=== PATIENT | female | born 1985 | race Two or more races ===

== ENCOUNTER 2020-01-03 09:05 | Outpatient (REF) | payer SELFPAY | END 2020-01-03 09:06 | disposition home or self-care (01) | LOC: HO.SCI 09:05 | DX: Z13.89 Encounter for screening for other disorder (principal) ==

== ENCOUNTER 2020-01-27 11:43 | Outpatient (REF) | payer MEDICAID, SELFPAY ==
--- NOTE | 2020-01-27 | US_ITS ---
EXAMINATION: ULTRASOUND OF THE PELVIS CLINICAL INFORMATION: Abnormal uterine bleeding.. COMPARISON: None. TECHNIQUE: Transabdominal and transvaginal pelvic ultrasound. A transvaginal study was performed in addition to the transabdominal study which did not yield an adequate examination of the uterus and ovaries due to superimposed distended gas-filled loops of bowel. FINDINGS: The uterus is normal in size and appearance, measuring 9.4 x 4.8 x 5.1 cm longitudinally, anteroposteriorly and transversely. The endometrial stripe thickness is normal, measuring 0.9 cm in thickness. No focal myometrial mass is seen. Nabothian cysts are noted at the cervix. The ovaries bilaterally are visualized and appear normal, with the right ovary measuring 2.5 x 1.8 x 1.9 cm and the left ovary measuring 2.5 x 2.3 x 1.6 cm. Small follicles noted. No adnexal mass or free fluid collection seen. US/US pelvic complete IMPRESSION: Somewhat prominent endometrium is likely associated with the phase of cycle. Otherwise unremarkable pelvic ultrasound..
--- NOTE | 2020-01-27 | US_ITS ---
EXAMINATION: ULTRASOUND OF THE PELVIS CLINICAL INFORMATION: Abnormal uterine bleeding.. COMPARISON: None. TECHNIQUE: Transabdominal and transvaginal pelvic ultrasound. A transvaginal study was performed in addition to the transabdominal study which did not yield an adequate examination of the uterus and ovaries due to superimposed distended gas-filled loops of bowel. FINDINGS: The uterus is normal in size and appearance, measuring 9.4 x 4.8 x 5.1 cm longitudinally, anteroposteriorly and transversely. The endometrial stripe thickness is normal, measuring 0.9 cm in thickness. No focal myometrial mass is seen. Nabothian cysts are noted at the cervix. The ovaries bilaterally are visualized and appear normal, with the right ovary measuring 2.5 x 1.8 x 1.9 cm and the left ovary measuring 2.5 x 2.3 x 1.6 cm. Small follicles noted. No adnexal mass or free fluid collection seen. US/US transvaginal IMPRESSION: Somewhat prominent endometrium is likely associated with the phase of cycle. Otherwise unremarkable pelvic ultrasound..
== END 2020-01-27 11:44 | disposition home or self-care (01) ==
LOC: HO.US 11:43
PROVIDERS: Visit Provider Family Medicine
DX: N93.9 Abnormal uterine and vaginal bleeding, unspecified (principal)
CPT/HCPCS: 76830; 76856

== ENCOUNTER 2022-12-27 | Outpatient (REF) | payer SELFPAY ==
[2023-01-01 20:37] LABS: HPV mRNA E6/E7 rflx Not Detected (Not Detected)
== END 2022-12-27 00:01 | disposition home or self-care (01) ==
LOC: HO.HHCLNP
PROVIDERS: Visit Provider Family Medicine
DX: Z12.4 Encounter for screening for malignant neoplasm of cervix (principal); Z11.51 Encounter for screening for human papillomavirus (HPV)
CPT/HCPCS: 87624; 88142

== ENCOUNTER 2023-02-07 09:50 | Outpatient (REF) | payer OTHER, SELFPAY ==
[2023-02-07 11:41] LABS: Estimated Average Glucose 120 mg/dL; Hemoglobin A1c % 5.8 % (<6.0)
[2023-02-07 12:04] LABS: Alanine Aminotransferase 33 U/L (0-31); Albumin Level 4.1 g/dL (3.5-5.0); Alkaline Phosphatase 131 U/L (39-117); Anion Gap 12 (12-20); Aspartate Amino Transferase 21 U/L (5-31); Bilirubin Total 0.4 mg/dL (0.0-1.0); Blood Urea Nitrogen 13 mg/dL (9-16); Calcium 9.1 mg/dL (8.4-10.2); Carbon Dioxide 26 mmol/L (22-29); Chloride 108 mmol/L (96-108); Cholesterol 161 mg/dL (<200); Estimated Glomerular Filt Rate > 60; Glucose Random 90 mg/dL (60-115); HDL Cholesterol 41 mg/dL (>40); LDL Cholesterol Calculated 93 mg/dL (<100); Potassium 4.1 mmol/L (3.3-5.1); Sodium 142 mmol/L (135-145); Total Protein 7.7 g/dL (6.5-8.0); Triglycerides 137 mg/dL (<150)
[2023-02-07 12:19] LABS: HBS Num1 16.89 mIU/mL (0-7.99); ~HepC Num1 0.17 S/CO (0.00-0.79); ~Hepatitis B Surface Antibody REACTIVE (Nonreactive); ~Hepatitis C Antibody Nonreactive (Nonreactive)
[2023-02-07 12:27] LABS: TSH reflex Free T4 4.42 uIU/mL (0.32-4.0)
[2023-02-07 13:11] LABS: Free T4 (Free Thyroxine) 1.05 ng/dL (0.71-1.85)
[2023-02-07 14:44] LABS: CT PCR NOT DETECTED (Not Detect.); NG PCR NOT DETECTED (Not Detect.)
[2023-02-11 10:15] LABS: RPR Rapid Plasma Reagin NON-REACTIVE (NON-REACTIVE)
[2023-02-11 17:03] LABS: HIV RNA PCR Qn Copies Not Detected Copies/mL; HIV RNA PCR Qn Log Copies Not Detected Log cps/mL
== END 2023-02-07 09:51 | disposition home or self-care (01) ==
LOC: HO.HHCL 09:50
PROVIDERS: Visit Provider Nurse Practitioner Family
DX: Z00.00 Encounter for general adult medical examination without abnormal findings (principal); E03.9 Hypothyroidism, unspecified; Z11.3 Encounter for screening for infections with a predominantly sexual mode of transmission
CPT/HCPCS: 0353U; 36415; 80053; 80061; 83036; 84439; 84443; 86592; 86706; 86803; 87536; 87900

== ENCOUNTER 2023-09-01 13:15 | Outpatient (REF) | payer OTHER, SELFPAY ==
[2023-09-01 16:41] LABS: Alanine Aminotransferase 32 U/L (0-31); Albumin Level 4.1 g/dL (3.5-5.0); Alkaline Phosphatase 111 U/L (39-117); Aspartate Amino Transferase 23 U/L (5-31); Bilirubin Direct 0.2 mg/dL (0.0-0.5); Bilirubin Total 0.5 mg/dL (0.0-1.0); Total Protein 7.6 g/dL (6.5-8.0)
[2023-09-01 16:57] LABS: TSH reflex Free T4 1.51 uIU/mL (0.32-4.0)
== END 2023-09-01 13:16 | disposition home or self-care (01) ==
LOC: HO.HHCL 13:15
PROVIDERS: Visit Provider Nurse Practitioner Family
DX: E03.9 Hypothyroidism, unspecified (principal)
CPT/HCPCS: 36415; 80076; 84443

== ENCOUNTER 2025-01-10 09:06 | Outpatient (REF) | payer MEDICAID, SELFPAY ==
--- OUTSIDE RECORDS SUMMARY | 2025-01-06 12:15 | XMS_ITS | Encounter Summary ---
Author Organization [employer] Address [address] [facility] [address] [place] [address] Care Team Providers Care Technical Support Director Name Role Phone Betsy Chan MD Primary Care Provide r Reason for Referral * Consultation (Routine) - Pending Review Specialty Diagnoses / Procedures Referred By Harish gutierres Referred To Contact Otolaryngology Diagnoses Tinnitus of left ear Betsy Chan MD [address] [place] [phone] Phone: tel: fax: Referral ID Status Reason Start Date Expiration Date Visits Requested Visits Authorized [id number] Pending Review Specialty Services Required 01/06/2026 1 1 Encounter Details Date Type Department Care Team (Late st Contact Info) Description 01/06/2025 1:15 PM EDT Office Visit [facility] [address] [place] [address] [phone] Betsy Chan MD [address] [place] [address] [phone] Metrorrhagia (Primary Dx); Hypothyroidism, unspecified type; Primary hypertension; Class 3 severe obesity due to excess calories without serious comorbidity with body mass index (BMI) of 50.0 to 59.9 in adult (HCC); Primary insomnia; Tinnitus of left ear Social History Tobacco Use Types Packs/Day Years Used Date Smoking Tobacco: Former Cigarettes Passive Smoke Exposure: Past Smokeless Tobacco: Never Tobacco Cessation:Counseling Given: Not Answered Comments:Smoking since age 21, quit smoking x 10 years then restarted smoking. Quit smoking in 2023 (1 yr) Alcohol Use Standard Drinks/Week Comments Not Currently 0 (1 standard drink = 0.6 oz pur e alcohol) Depression Answer Date Recorded Patient Health Questionnaire-9 Score 0 08/25/2023 Patient Health Questionnaire-9 Score 0 08/25/2023 Last PHQ-9: Questionnaire Data Not on file 0 08/25/2023 Housing Stability Answer Date Recorded What is your housing situation today? I have chirag whitt 02/07/[address] you li ve. Do you have problems with any of the following? None of the above 02/07/2023 Food Insecurity Answer Date Recorded Within the past 12 months, y ou worried that your food would run out before you got money to buy more: Never True 02/07/2023 Within the past 12 months,th e food you bought just didn't last and you didn't have enough money to get more: Never True 03/2022 Transportation Answer Date Recorded In the past 12 months, has l ack of transportation kept you from medical appts, meetings, work or from getting things needed for daily living? No 02/07/2023 Utilities Answer Date Recorded In the past 12 months, has t he electric, gas, oil or water company threatened to shut off services in your home? No 02/07/2023 Depression Answer Date Recorded Patient Health Questionnaire-2 Score 0 08/25/2023 Comments No Sex and Gender Information Value Date Recorded Sex Assigned at Female 01/07/2022 10:37 AM EDT Legal Sex Female 10:37 AM EDT Gender Identity Choose not to disclose 10:37 AM EDT Sexual Orientation Choose not to disclose 2021 10:37 AM EDT documented as of this encounter Last Filed Vital Signs Vital Sign Reading Time Taken Comments Blood Pressure 142/72 01/06/2025 1:19 PM EDT Pulse 60 01/06/2025 1:19 PM EDT Temperature 36.6 C (97.9 F) 01/06/2025 1:19 PM EDT Respiratory Rate 20 01/06/2025 1:19 PM EDT Oxygen Saturation - - Inhaled Oxygen Concentration - - Weight 133 kg (293 lb 6.4 oz) 01/06/2025 1:19 PM EDT Height 157.5 cm (5' 2 ) 01/06/2025 1:19 PM EDT Body Mass Index 53.66 01/06/2025 1:19 PM EDT documented in this encounter Progress Notes * Betsy Lew MD - 01/06/2025 1:15 PM EDT SUBJECTIVE: Gela Vargas is a 39 y.o. year old adult who presents for transfer appointment . Occupation:unemployed used to work as [employer] Lives with:partner - EtOH denies - smoking cigarettes denies - recreational drug use denies Diet:regular Exercise:sedentary LMP: metrorrhagia, dysmenorrhea, prolonged menstrual period 12/05/24 Surgeries/Hospitalizations: cholecystectomy PAP smear: due on 12/27/25 PMHx:hypothyroidism and hypertension FMHx:father and mother hypertension and DM type 2 Immunizations: Revived Gela Vargas, age: 39 years Menstrual Irregularities - Menstrual cycle abnormal for approximately 1 year, with heavy and prolonged bleeding - Menses previously lasted 6 days, now up to 15 days, with police stenographer flow in the last weeks - Last menstrual period started December 05, 2024 - Menstrual cycle improved in the last 2 months, but duration remains prolonged Hypothyroidism - History of hypothyroidism, previously diagnosed - Symptoms include fatigue, feeling cold, hair loss, dry skin, and slowed metabolism - Levothyroxine dose increased by previous physician about 1 year ago - No endocrinology visits prior to this encounter Hypertension - History of hypertension, currently managed with medication - Reports blood pressure usually in the 130s/40s range since starting medication - Mildly elevated blood pressure noted on some occasions Lower Extremity Edema - Reports episodes of significant leg swelling, especially after prolonged standing or travel - Swelling resolves after activity ceases Insomnia - Difficulty sleeping, reports insomnia - Denies constipation Left Ear Tinnitus - Reports mild ringing in the left ear, possibly related to frequent headphone use Social History Social History Narrative Not on file Problem List[1] Hypothyroidism BMI 50.0-59.9, adult (CMS/HCC) (HCC) Metrorrhagia Primary hypertension Class 3 severe obesity due to excess calories without serious comorbidity with body mass index (BMI) of 50.0 to 59.9 in adult ([facility]) Primary insomnia Tinnitus of left ear Family History[2] Review of Systems Constitutional: Negative. HENT: Positive for tinnitus. Negative for congestion, dental problem, drooling, ear discharge, ear pain, facial swelling, hearing loss, mouth sores, nosebleeds, postnasal drip, rhinorrhea, sinus pressure, sinus pain, sneezing, sore throat, trouble swallowing and voice change. Respiratory: Negative. Cardiovascular: Negative. Genitourinary: Positive for menstrual problem. OBJECTIVE: Vitals: 01/06/25 1319 BP: (!) 142/72 BP Location: Left arm Patient Position: Sitting BP Cuff Size: Large adult Pulse: 60 Resp: 20 Temp: 97.9 ??F (36.6 ??C) TempSrc: Oral Weight: 293 lb 6.4 oz (133 kg) Height: 5' 2 (1.575 m) Physical Exam Constitutional: Appearance: Normal appearance. Cardiovascular: Rate and Rhythm: Normal rate and regular rhythm. Pulmonary: Effort: Pulmonary effort is normal. Breath sounds: Normal breath sounds. Abdominal: General: Abdomen is flat. Palpations: Abdomen is soft. Musculoskeletal: Right lower leg: No edema. Left lower leg: No edema. Neurological: Mental Status: Gela is alert. Follow Up: No follow-ups on file. Medications Ordered Prior to Encounter[3] Problem List Items Addressed This Visit Metrorrhagia - Primary Relevant Orders CBC auto differential Comprehensive Metabolic Panel Hemoglobin A1c HIV-1/2 Antigen and Antibodies, Fourth Generation, with Reflexes Hepatitis C Antibody with Reflex to HCV, RNA, Quantitative, Real-Time PCR Hypothyroidism Relevant Orders CBC auto differential Comprehensive Metabolic Panel Lipid Panel, Standard Vitamin D, 25-Hydroxy, Total, Immunoassay TSH with Reflex to Free T4 Primary hypertension Relevant Medications losartan (Cozaar) 25 MG tablet Class 3 severe obesity due to excess calories without serious comorbidity with body mass index (BMI) of 50.0 to 59.9 in adult (HCC) Relevant Orders Comprehensive Metabolic Panel Hemoglobin A1c Vitamin D, 25-Hydroxy, Total, Immunoassay TSH with Reflex to Free T4 Primary insomnia Relevant Medications melatonin 10 MG tablet Tinnitus of left ear Relevant Orders Referral to ENT - Metrorrhagia: - Metrorrhagia with prolonged and heavy menstrual bleeding. Possible association with thyroid dysfunction discussed. - Ordered laboratory tests to evaluate thyroid function and other relevant parameters. Will review laboratory results via telephone follow-up. If thyroid function is normal and metrorrhagia persists,consideration of referral to gynecology and pelvic ultrasound discussed. - Hypothyroidism, unspecified type: - Hypothyroidism confirmed, currently managed with levothyroxine. Possible contribution to menstrual irregularities and weight management difficulties discussed. - Continue current dose of levothyroxine. Ordered laboratory tests for thyroid hormone levels. Willre-evaluate medication regimen after reviewing laboratory results. - Primary hypertension: - Hypertension under management with losartan. Noted mildly elevated blood pressure reading today, possibly related to recent caffeine intake and timing of measurement. - Continue losartan as prescribed. Recommended dietary sodium restriction and home blood pressure monitoring. Prescribed refill for losartan. No adjustment to antihypertensive regimen at this time; will reassess after laboratory review. - Class 3 severe obesity due to excess calories without serious comorbidity with body mass index (BMI) of 50.0 to 59.9 in adult ([facility]): - Severe obesity discussed as a factor in overall health and metabolic risk. Possible interplay with hypothyroidism noted. - Recommended dietary modifications including portion control, increased water intake, reduction ofcarbohydrate-rich foods, avoidance of sugary drinks, increased protein intake, and home meal preparation. Advised initiation of moderate-intensity exercise for at least 150 minutes per week or vigorous- intensity exercise for at least 75 minutes per week. Weight management interventions to be further addressed following laboratory evaluation. - Primary insomnia: - Insomnia symptoms discussed; patient reports difficulty sleeping. - Prescribed melatonin 10 mg nightly, not to exceed this dose. Provided sleep hygiene counseling including avoidance of caffeine, limiting fluid intake before bedtime, maintaining a comfortable sleepenvironment, restricting screen time prior to sleep, and using the bed only for sleep. - Tinnitus of left ear: - Tinnitus in the left ear reported; possible association with frequent use of headphones noted. - Recommended evaluation by otolaryngology (ENT) for further assessment of tinnitus etiology. This note was drafted using [employer] (AI) technology. The patient/patient's guardian has been informed and has consented to the use of this technology: Yes [1] Patient Active Problem List Diagnosis Hypothyroidism BMI 50.0-59.9, adult ([facility]) ([facility]) Metrorrhagia Primary hypertension Class 3 severe obesity due to excess calories without serious comorbidity with body mass index (BMI) of 50.0 to 59.9 in adult ([facility]) Primary insomnia Tinnitus of left ear [2] Family History Problem Relation Name Age of Onset Diabetes type II Mother Heart attack Father Stroke Father Diabetes type II Father Breast cancer Father's Sister [3] Current Outpatient Medications on File Prior to Visit Medication Sig Dispense Refill Blood Pressure kit 1 kit 2 times daily. Please give xlg cuff 1 kit 1 levothyroxine (Synthroid) 75 MCG tablet Take 1 tablet (75 mcg) by mouth before breakfast. 90 tablet3 [DISCONTINUED] losartan (Cozaar) 25 MG tablet Take 1 tablet (25 mg) by mouth Once per day. 90 tablet 3 No current facility-administered medications on file prior to visit. documented in this encounter Plan of Treatment Upcoming Encounters Date Type Department Care Team (Late st Contact Info) Description 01/14/2025 1:30 PM EST Telemedicine [facility] [address] [place] [address] [phone] Betsy Chan MD [address] [place] [address] Scheduled Orders Name Type Priority Associated Diagnoses Orde r Schedule CBC auto differential Lab Routine Metrorrhagia Hypothyroidism, unspecified type Expected: 01/06/2025 (Approximate), Expires: 01/06/2026 Comprehensive Metabolic Panel Lab Routine Metrorrhagia Hypothyroidism, unspecified type Class 3 severe obesity due to excess calories without serious comorbidity with body mass index (BMI) of 50.0 to 59.9 in adult ([facility]) Expected: 01/06/2025 (Approximate), Expires: 01/06/2026 Hemoglobin A1c Lab Routine Metrorrhagia Class 3 severe obesity due to excess calories without serious comorbidity with body mass index (BMI) of 50.0 to 59.9 in adult ([facility]) Expected: 01/06/2025 (Approximate), Expires: 01/06/2026 HIV-1/2 Antigen and Antibodies, Fourth Generation, with Reflexes Lab Routine Metrorrhagia Expected: 01/06/2025 (Approximate), Expires: 01/06/2026 Hepatitis C Antibody with Reflex to HCV, RNA, Quantitative, Real-Time PCR Lab Routine Metrorrhagia Expected: 01/06/2025, Expires: 01/06/2026 Lipid Panel, Standard Lab Routine Hypothyroidism, unspecified type Expected: 01/06/2025 (Approximate), Expires: 01/06/2026 Vitamin D, 25-Hydroxy, Total, Immunoassay Lab Routine Hypothyroidism, unspecified type Class 3 severe obesity due to excess calories without serious comorbidity with body mass index (BMI) of 50.0 to 59.9 in adult ([facility]) Expected: 01/06/2025 (Approximate), Expires: 01/06/2026 TSH with Reflex to Free T4 Lab Routine Hypothyroidism, unspecified type Class 3 severe obesity due to excess calories without serious comorbidity with body mass index (BMI) of 50.0 to 59.9 in adult ([facility]) Expected: 01/06/2025 (Approximate), Expires: 01/06/2026 Scheduled Referrals Name Type Priority Associated Diagnoses Orde r Schedule Referral to ENT Outpatient Referral Routine Tinnitus of left ear Expected: 01/06/2025 (Approximate), Expires: 01/06/2026 documented as of this encounter Visit Diagnoses Diagnosis Metrorrhagia- Primary Hypothyroidism, unspecified type Primary hypertension Unspecified essential hypertension Class 3 severe obesity due to excess calories without serious comorbidity with body mass index (BMI) of 50.0 to 59.9 in adult ([facility]) Primary insomnia Persistent disorder of initiating or maintaining sleep Tinnitus of left ear documented in this encounter Additional Health Concerns Assessment Noted Time PHQ-9 Depression Total Score: 0 08/25/19 24 4:37 PM EDT documented as of this encounter Care Teams Technical Support Director Relationship Specialty Start Date End Date Betsy Chan MD [address] [place] [phone] PCP - General Internal Medicine 11/11/24 documented as of this encounter
--- OUTSIDE RECORDS SUMMARY | 2025-01-10 10:05 | XMS_ITS | Encounter Summary ---
Author Organization [employer] Address [address] [facility] [address] [place] [address] Care Team Providers Care Staff Occupational Therapist Name Role Phone Betsy Chan MD Primary Care Provide r Reason for Visit * Reason Onset Date Comments chart prep 01/05/2025 Encounter Details Date Type Department Care Team ([facility] st Contact Info) Description 01/05/2025 Telephone [facility] [address] [place], [place] [phone] Betsy Chan MD [address] [place], [place] [phone] chart prep Social History Tobacco Use Types Packs/Day Years Used Date Smoking Tobacco: Every Day Cigarettes Smokeless Tobacco: Never Comments:Smoking since age [age], quit smoking x 10 years then restarted smoking Alcohol Use Standard Drinks/Week Comments Not Currently [...] Patient Health Questionnaire-2 Score 0 08/25/2023 Comments Unknown Sex and Gender Information Value Date Recorded Sex Assigned at Female 01/07/2022 10:37 AM EDT Legal Sex Female 10:37 AM EDT Gender Identity Choose not to disclose 10:37 AM EDT Sexual Orientation Choose not to disclose 2021 10:37 AM EDT documented as of this encounter Miscellaneous Notes * Telephone Encounter - Roberto Manzanares MA - 01/05/2025 8:10 PM EDT Chart Prep Labs: not done Images: not done Referrals: not applicable Vaccines due: Covid and Flu Screenings: LMP Overdue care gaps: SBIRT, SDOH, PHQ-9, AZRA-7, Oral health screening, and Disability screen. documented in this encounter Plan of Treatment Upcoming Encounters Date Type Department Care Team (Late st Contact Info) Description 01/14/2025 1:30 PM EST Telemedicine [facility] [address] [place] [address] Betsy Chan MD [address] [place] [address] documented as of this encounter Visit Diagnoses Not on filedocumented in this encounter Additional Health Concerns Assessment Noted Time PHQ-9 Depression Total Score: 0 08/25/19 24 4:37 PM EDT documented as of this encounter Care Teams Staff Occupational Therapist Relationship Specialty Start Date End Date Betsy Chan MD [address] [place] [address] PCP - General Internal Medicine 11/11/24 documented as of this encounter
--- OUTSIDE RECORDS SUMMARY | 2025-01-10 10:05 | XMS_ITS | Clinical Summary ---
Author Organization [email or web address] Address [address] [place] [address] Care Team Providers Care Boiler/Chiller Technician Name Role Phone Betsy Chan MD Primary Care Provide r Allergies Active Allergy Reactions Criticality Noted Date Comments Lisinopril Cough 10/10/2023 Medications Blood Pressure kit 1 kit 2 times daily. Please give xlg cuff 1 kit 1 08/25/19 24 Active levothyroxine (Synthroid) 75 MCG tablet Take 1 tablet (75 mcg) by mouth before breakfast. 90 tablet 3 10/10/19 24 Active losartan (Cozaar) 25 MG tabletIndication s:Primary hypertension Take 1 tablet (25 mg) by mouth Once per day. 90 tablet 3 01/07/20 25 026 Active melatonin 10 MG tabletIndication s:Primary insomnia Take 1 tablet (10 mg) by mouth at bedtime. 30 tablet 1 01/07/20 25 Active losartan (Cozaar) 25 MG tablet Take 1 tablet (25 mg) by mouth Once per day. 90 tablet 3 10/10/19 24 025 Discontinued(Re order (will not trigger notification to Pharmacy)) Active Problems Problem Noted Date Diagnosed Date Metrorrhagia 01/06/2025 Primary hypertension 01/06/2025 Class 3 severe obesity due t o excess calories without serious comorbidity with body mass index (BMI) of 50.0 to 59.9 in adult 01/06/2025 Primary insomnia 01/06/2025 Tinnitus of left ear 01/06/2025 Hypothyroidism 12/27/2022 12/27/2022 BMI 50.0-59.9, adult ([facility]) 12/27/2022 Encounters Date Type Department Care Team Description 01/06/2025 1:15 PM EDT Office Visit [facility] [address] [place] [phone] Betsy Chan MD Metrorrhagia (Primary Dx); Hypothyroidism, unspecified type; Primary hypertension; Class 3 severe obesity due to excess calories without serious comorbidity with body mass index (BMI) of 50.0 to 59.9 in adult ([facility]); Primary insomnia; Tinnitus of left ear 01/06/2025 Travel 01/05/2025 Telephone [facility] [address] [place] [phone] Betsy Chan MD chart prep 12/30/[address] [facility] [address] [place] [address] Betsy Chan MD Pre-visit Planning (SDOH unable to complete) 11/02/2024 Telephone [facility] [address] [place] [address] Roberto Perez MD CHW - New Patient Assistance 10/18/2024 Telephone [facility] [address] [place] [address] [phone] Constance Guy RN 10/13/2024 Refill [facility] [address] [place] [address] [phone] Bety Browning FNP 10/13/2024 Refill [facility] [address] [place] [address] [phone] Bety Browning FNP from Last 3 Months Family History Medical History Relation Name Comments Diabetes type II Father Heart attack Father Stroke Father Breast cancer Father's Sister Diabetes type II Mother Relation Name Status Comments Father Father's Sister Mother Social History Tobacco Use Types Packs/Day Years [...] not to disclose 2021 10:37 AM EDT Last Filed Vital Signs Vital Sign Reading Time Taken Comments Blood Pressure 142/72 01/06/2025 1:19 PM EDT Pulse 60 01/06/2025 1:19 PM EDT Temperature 36.6 C (97.9 F) 01/06/2025 1:19 PM EDT Respiratory Rate 20 01/06/2025 1:19 PM EDT Oxygen Saturation 99% 10/10/2023 3:19 PM EDT Inhaled Oxygen Concentration - - Weight 133 kg (293 lb 6.4 oz) 01/06/2025 1:19 PM EDT Height 157.5 cm (5' 2 ) 01/06/2025 1:19 PM EDT Body Mass Index 53.66 01/06/2025 1:19 PM EDT Plan of Treatment Upcoming Encounters Date Type Department Care Team (Late st Contact Info) Description 01/14/2025 1:30 PM EST Telemedicine [facility] [address] [place] [address] Betsy Chan MD [address] [place], [place] [phone] Health Maintenance Due Date Last Done Comments Disability Screening 1986 Alcohol/Substance Use Screening 1998 Family Planning (PISQ) 2001 HPV Vaccines (1 - 3-dose series) 2001 DTaP/Tdap/Td Vaccines (1 - Tdap) 2005 Hepatitis B Vaccines (1 of 3 - 19+ 3-dose series) 2005 SDOH Screening 02/08/2024 02/07/2023 Depression Screening 08/24/2024 08/25/2023, 08/25/2023 COVID-19 Vaccine (3 - 2024-2 6 season) 2024 08/20/2020, 07/23/2020 Influenza Vaccine (#1) 2024 Cervical Cancer Screening 12/27/2025 Pap Smear 12/27/2025 12/27/2022, 12/31/2019 Tobacco Screening 01/06/2026 01/06/2025 HPV/Cotest 12/28/2027 12/27/2022, 12/31/2019 Lipid Panel 02/08/2028 02/07/2023 Zoster Vaccines (1 of 2) 2036 RSV Patients and Patients Aged 60 years or older (1 - 1-dose 75+ series) 2061 HIV Screening Completed 12/22/2019 Hepatitis C Screening Completed 02/07/2023 , 12/22/2019 HIB Vaccines Aged Out No longer eligi ble based on patient's age to complete this topic Hepatitis A Vaccines Aged Out No long er eligible based on patient's age to complete this topic IPV Vaccines Aged Out No longer eligi ble based on patient's age to complete this topic Meningococcal B Vaccine Aged Out No l onger eligible based on patient's age to complete this topic Meningococcal Vaccine Aged Out No jenn mehdi eligible based on patient's age to complete this topic Pneumococcal Vaccine: Pediatrics (0 to 5 Years) and At-Risk Patients (6 to 49) Years Aged Out No longer eligible b ased on patient's age to complete this topic RSV under 20 months Aged Out No longe r eligible based on patient's age to complete this topic Rotavirus Vaccines Aged Out No longer eligible based on patient's age to complete this topic Procedures Procedure Name Priority Date/Time Associated Diagnosis Comments HEPATITIS C AB W/REFL TO HCV RNA, QN, PCR Routine 02/07/2023 9:53 AM EST Routine general medical examination at a health care facility LIPID PANEL, STANDARD Routine 02/07/2023 9:53 AM EST Dietary counseling HPV MRNA E6/E7 REFLEX TO HPV 16, 18/45 Routine 12/27/2022 11:30 AM EDT PAP SMEAR Routine 12/27/2022 11:30 AM EDT HIV 1/2 ANTIGEN/ANTIBODY, FOURTH GENERATION W/RFL Routine 12/22/2019 2:01 PM EDT from Last 3 Months or Most Recently Relevant to Health Maintenance Results * Hepatitis C Antibody with Reflex to HCV, RNA, Quantitative, Real-Time PCR (02/07/2023 9:53 AM EST) Hepatitis C Antibody Nonreactive Nonreactive [facility] Comment:Antibodies to HCV no t detected; does not exclude early acuteHCV infection. Blood Venous blood specimen / Unknown 02/07/2023 9:53 AM EST 02/07/2023 11:09 AM EST us Bety Browning [facility] BLOOD ORDERABLES Final Resu lt [facility] [address] [place] [phone] * Lipid Panel, Standard (02/07/2023 9:53 AM EST) Triglycerides 137 <150 mg/dL [facility] Comment:Desirable Triglyceri de: less than 150 mg/dLBorderline High Triglyceride 150-199 mg/dLHigh Triglyceride: 200-499 mg/dLVery High Triglyceride: greater than or equal to 5OO mg/dL Cholesterol 161 <200 mg/dL [facility] Comment:Desirable Cholestero l: less than 200 mg/dLBorderline High Cholesterol: 200-239 mg/dLHigh Cholesterol: greater than 239 mg/dL LDL Cholesterol Calculated 93 <100 mg/dL [facility] Comment:Desirable LDL: less than 100 mg/dLNear Optimal/Above Optimal LDL: 110- 129 mg/dLBorderline High LDL: 130-159 mg/dLHigh LDL: 160-189 mg/dLVery High LDL: greater than or equal to 190 mg/dL HDL Cholesterol 41 >40 mg/dL [facility] Comment:Desirable HDL: great er than 40 mg/dL Note: This HDL assay may give artificially low results in patients with liver disease. Blood Venous blood specimen / Unknown 02/07/2023 9:53 AM EST 02/07/2023 11:12 AM EST Bety Browning ASSOCIATE CHIEF NURSE LAB BLOOD ORDERABLES Final Resu lt [facility] [address] [place] [phone] * HPV mRNA E6/E7 w/Reflex to HPV Genotypes 16, 18/45 (12/27/2022 11:30 AM EDT) HPV nRNA E6/E7 Not Detected Not Detected [facility] Comment:Methodology: Transcr iption-Mediated AmplificationThis assay detects E6/E7 viral messenger RNA (mRNA) from 14high-risk HPV types (16,18,31,33,35,39,45,51,52,56,58,59,66,68).Cervical sources are required for HPV testing.If a vaginal source from a patient who has had atotal hysterectomy with removal of cervix wassubmitted, please contact the testing laboratoryfor alternative testing options.For additional information, please refer tohttp://education.Check.[employer]/faq/UZS874t7(This link if provided for information/educational purposes only.)THIS TEST WAS PERFORMED AT:[facility] [place] [phone] COX MD HPV mRNA E6/E7 TNP [facility] HPV 16 RNA TNP [facility] HPV 18/45 RNA TNP [facility] 12/27/2022 11:3 0 AM EDT 12/30/2022 9:15 AM EDT us Lenora Sorenson DO LAB CYTOLOGY ORDERABLES Breanna sauceda Result [facility] [address] [place] [phone] [phone] * Pap Smear (12/27/2022 11:30 AM EDT) 12/27/2022 11:3 0 AM EDT 12/30/2022 9:15 AM EDT Narrative [facility] - 01/02/2023 9:40 AM EDT ----- ------- Name: Gela Olivera Age/Sex: 37/F : 1985 Unit#: [id number] Attend Dr: Lenora Sorenson DO Re12/27/22 Status: DEP [facility] ----- ------- SPEC : [id number] RECD: 12/30/22 STATUS: GENIE FERGUSON NUM: [id number] BIENVENIDO: 12/27/22 [facility] DR: Lenora Sorenson DO ENTERED: 12/30/22 SP TYPE: Pap Smr OT DR: ORDERED: Pap Smear Interpretation Satisfactory for evaluation. Mild inflammation. Negative for intraepithelial lesion or malignancy. HPV mRNA E6/E7: NOT DETECTED This assay detects E6/E7 viral messenger RNA (mRNA) from 14 high-risk HPV types (16, 18, 31, 33, 35, 39, 45, 51, 52, 56, 58, 59, 66, 68) HPV testing performed by [facility], [place], [place]. See reference laboratory pion of the EMR for entire report. Clinical Information LMP: Unknown date Previous PAP test: Unknown date, WNL Material Received ThinPrep-Cervical ----- ------- Signed (signature on file) BREE Granado (ASCP) 01/02/23 0940 ----- ------- END OF REPORT us Lenora Sorenson DO LAB CYTOLOGY ORDERABLES Breanna l Result [facility] [address] [place] [phone] * HIV 1/2 ANTIGEN/ANTIBODY,FOURTH GENERATION W/RFL (12/22/2019 2:01 PM EDT) HIV-1/2 ANTIGEN AND ANTIBODIES, 4TH GENERATION W/ REFLEX NON-REACT [facility] NON-REACT [facility] Comment: HIV-1 antigen and HIV-1/HIV-2 antibodies were not detected. There is no laboratory evidence of HIV infection. PLEASE NOTE: This information has been disclosed to you from records whose confidentiality may be protected by state law. If your state requires such protection, then the state law prohibits you from making any further disclosure of the information without the specific written consent of the person to whom it pertains, or as otherwise permitted by law. A general authorization for the release of medical or other information is NOT sufficient for this purpose. For additional information please refer to http://PerformYard.Lexy/faq/PBT197 (This link is being provided for informational/ educational purposes only.) The performance of this assay has not been clinically validated in patients less than 2 years old. HIV-1/2 ANTIGEN AND ANTIBODIES, 4TH GENERATION W/ REFLEX NON-REACT [facility]ACT [facility] Comment: HIV-1 antigen and HIV-1/HIV-2 antibodies were not detected. There is no laboratory evidence of HIV infection. PLEASE NOTE: This information has been disclosed to you from records whose confidentiality may be protected by state law. If your state requires such protection, then the state law prohibits you from making any further disclosure of the information without the specific written consent of the person to whom it pertains, or as otherwise permitted by law. A general authorization for the release of medical or other information is NOT sufficient for this purpose. For additional information please refer to http://PerformYard.Lexy/faq/SGV032 (This link is being provided for informational/ educational purposes only.) The performance of this assay has not been clinically validated in patients less than 2 years old. HIV-1/2 ANTIGEN AND ANTIBODIES, 4TH GENERATION W/ REFLEX NON-REACT [facility]ACT [facility] Comment: HIV-1 antigen and HIV-1/HIV-2 antibodies were not detected. There is no laboratory evidence of HIV infection. PLEASE NOTE: This information has been disclosed to you from records whose confidentiality may be protected by state law. If your state requires such protection, then the state law prohibits you from making any further disclosure of the information without the specific written consent of the person to whom it pertains, or as otherwise permitted by law. A general authorization for the release of medical or other information is NOT sufficient for this purpose. For additional information please refer to http://PerformYard.Lexy/faq/YBR699 (This link is being provided for informational/ educational purposes only.) The performance of this assay has not been clinically validated in patients less than 2 years old. HIV-1/2 ANTIGEN AND ANTIBODIES, 4TH GENERATION W/ REFLEX NON-REACT [facility] NON-REACT [facility] Comment: HIV-1 antigen and HIV-1/HIV-2 antibodies were not detected. There is no laboratory evidence of HIV infection. PLEASE NOTE: This information has been disclosed to you from records whose confidentiality may be protected by state law. If your state requires such protection, then the state law prohibits you from making any further disclosure of the information without the specific written consent of the person to whom it pertains, or as otherwise permitted by law. A general authorization for the release of medical or other information is NOT sufficient for this purpose. For additional information please refer to http://PerformYard.Check.[employer]/faq/WON942 (This link is being provided for informational/ educational purposes only.) The performance of this assay has not been clinically validated in patients less than 2 years old. 12/22/2019 2:01 PM EDT us Zelda Travis MD LAB BLOOD ORDERABLES Final R esult [facility] [address] from Last 3 Months or Most Recently Relevant to Health Maintenance Insurance [facility] Address: [address] [address] [place] [address] Care Teams Boiler/Chiller Technician Relationship Specialty Start Date End Date Betsy Chan MD [address] [place] [phone] PCP - General Internal Medicine 11/11/24
--- OUTSIDE RECORDS SUMMARY | 2025-01-10 10:05 | XMS_ITS | Encounter Summary ---
Author Organization [employer] Address [address] [place] [address] Care Team Providers Care Liquor Grinder Mill Operator Name Role Phone Betsy Chan MD Primary Care Provide r Encounter Details Date Type Department Care Team (Latest Contact Info) Description 01/06/2025 Travel Social History Tobacco Use Types Packs/Day Years Used Date Smoking Tobacco: Former Cigarettes Passive Smoke Exposure: Past Smokeless Tobacco: Never Comments:Smoking since age 3 [...] AM EDT documented as of this encounter Plan of Treatment Upcoming Encounters Date Type Department Care Team (Late st Contact Info) Description 01/14/2025 1:30 PM EST Telemedicine [facility] [address] [place] [phone] Betsy Chan MD [address] [place] [phone] documented as of this encounter Visit Diagnoses Not on filedocumented in this encounter Additional Health Concerns Assessment Noted Time PHQ-9 Depression Total Score: 0 08/25/19 24 4:37 PM EDT documented as of this encounter Care Teams Liquor Grinder Mill Operator Relationship Specialty Start Date End Date Betsy Chan MD [address] [place] [phone] PCP - General Internal Medicine 11/11/24 documented as of this encounter
--- OUTSIDE RECORDS SUMMARY | 2025-01-10 10:05 | XMS_ITS | Encounter Summary ---
Author Organization [employer] Address [address] [facility] [address] [place] [address] Care Team Providers Care Undercover Cop Name Role Phone Bety Browning Primary Care Provider [phone] Betsy Chan MD Primary Care Provide r Reason for Visit * Reason Comments Med Refill Encounter Details Date Type Department Care Team (Late st Contact Info) Description 10/13/[address] [facility] [address] [place], [place] [phone] Bety Browning FNP [address] [place], [place] [phone] Social History Tobacco Use Types Packs/Day Years [...] Info) Description 01/14/2025 1:[address] [facility] [address] [place] [phone] Betsy Chan MD [address] [place] [address] documented as of this encounter Visit Diagnoses Not on filedocumented in this encounter Additional Health Concerns Assessment Noted Time PHQ-9 Depression Total Score: 0 08/25/19 24 4:37 PM EDT documented as of this encounter Care Teams Undercover Cop Relationship Specialty Start Date End Date Bety Browning FNP [address] [place] [phone] PCP - General Family Medicine 11/11/21 10/17/24 Betsy Chan MD [address] [place] [address] PCP - General Internal Medicine 11/11/24 documented as of this encounter
[2025-01-10 11:34] LABS: MANUAL DIFF FLAG NO
[2025-01-10 11:45] LABS: Hematocrit 30.5 % (37.0-47.0); Hemoglobin 8.6 g/dl (12.0-16.0); Imm Gran Abs Auto 0.03 X10*3/uL (0.00-0.03); Imm Gran Pct Auto 0.2 % (0.0-0.4); Lymphocytes Absolute Auto 3.9 X10*3/uL (1.2-4.9); Mean Corpuscular HGB Conc 28.2 g/dl (31.0-35.0); Mean Corpuscular Hemoglobin 19.5 pg (27.0-33.0); Mean Corpuscular Volume 69.3 fL (80.0-98.0); NRBC Abs Auto 0.000 X10*3/uL (0.0-0.012); NRBC Pct Auto 0.0 /100WBC (0.0-0.2); Platelet Count 519 X10*3/uL (160-400); Red Blood Count 4.40 X10*6/uL (4.20-5.50); White Blood Count 12.2 X10*3/uL (4.8-10.8)
[2025-01-10 12:29] LABS: Alanine Aminotransferase 27 U/L (0-31); Albumin Level 4.2 g/dL (3.5-5.0); Alkaline Phosphatase 100 U/L (39-117); Anion Gap 11 (12-20); Aspartate Amino Transferase 33 U/L (5-31); Blood Urea Nitrogen 13 mg/dL (9-16); Calcium 9.0 mg/dL (8.4-10.2); Carbon Dioxide 23 mmol/L (22-29); Chloride 109 mmol/L (96-108); Cholesterol 192 mg/dL (<200); Estimated Glomerular Filt Rate > 60; HDL Cholesterol 37 mg/dL (>40); Potassium 4.2 mmol/L (3.3-5.1); Sodium 139 mmol/L (135-145); Total Protein 7.6 g/dL (6.5-8.0); Triglycerides 111 mg/dL (<150)
[2025-01-10 12:34] LABS: HIV Num 1 0.06 S/CO (0.00-0.99); ~HepC Num1 0.14 S/CO (0.00-0.79); ~Hepatitis C Antibody Nonreactive (Nonreactive)
== END 2025-01-10 09:07 | disposition home or self-care (01) ==
LOC: HO.HHCL 09:06
PROVIDERS: PCP Internal Medicine; Visit Provider Internal Medicine
DX: Z11.4 Encounter for screening for human immunodeficiency virus [HIV] (principal); Z11.59 Encounter for screening for other viral diseases; N92.1 Excessive and frequent menstruation with irregular cycle; E66.813 Obesity, class 3; E03.9 Hypothyroidism, unspecified; Z68.43 Body mass index [BMI] 50.0-59.9, adult
CPT/HCPCS: 36415; 80053; 80061; 82306; 83036; 84443; 85025; 86803; 87389

== ENCOUNTER 2025-02-23 15:14 | Outpatient (REF) | payer MEDICAID, SELFPAY ==
--- NOTE | ~2025-02-23 | US_ITS ---
EXAMINATION: US PELVIS CLINICAL INFORMATION: Menorrhagia COMPARISON: January 27, 2020 TECHNIQUE: Ultrasound of the pelvis is performed using both transabdominal and transvaginal transducers along with Doppler. Transvaginal imaging is performed due to inadequate visualization transabdominally. FINDINGS: Uterus: The uterus is in anteversion flexion and measures 10 x 6 x 6 cm. Volume: 203 cc. The double wall endometrial thickness is 7 mm. The uterus is smooth in contour and has normal myometrial echogenicity. No visible fibroid. Adnexa: Both ovaries are identified with flow on color Doppler interrogation. The left ovary demonstrates an heterogeneous, 6 cm mixed solid and anechoic abnormality. Right ovary measures 2 x 2 x 2 cm. Volume: 6.4 cc. Left ovary measures 7 x 6 x 6 cm. Volume: 141 cc. US/US pelvic and transvaginal IMPRESSION: 6 cm heterogeneous mixed solid and cystic abnormality in the left ovary. No ovarian torsion. Recommend relation correlation with serial quantitative beta-hCG.. Consider IV contrast enhanced MRI pelvis. Text message via [employer] connect to the requesting physician Dr. Betsy Lew at 4:04 PM on February 23, 2025.. Electronically signed by: Ruperto Waldrop MD 02/23/2025 04:07 PM [facility]
--- OUTSIDE RECORDS SUMMARY | 2025-02-23 20:14 | XMS_ITS | Encounter Summary ---
Author Organization [employer] Address [address] [facility] [address] [place] [address] Care Team Providers Care Stock Chaser Name Role Phone Bety Browning Primary Care Provider [phone] Betsy Chan MD Primary Care Provide r Reason for Visit * Reason Comments Med Refill Encounter Details Date Type Department Care Team (Late st Contact Info) Description 10/13/2024 Refill [facility] [address] [place], [place] [phone] Bety Browning FNP [address] [place], [place] [phone] Social History Tobacco Use Types Packs/Day Years [...] Care Team (Late st Contact Info) Description 03/01/2025 9:00 AM EST Telemedicine [facility] [address] [place] [address] Betsy Chan MD [address] [place] [address] documented as of this encounter Visit Diagnoses Not on filedocumented in this encounter Additional Health Concerns Assessment Noted Time PHQ-9 Depression Total Score: 0 08/25/19 24 4:37 PM EDT documented as of this encounter Care Teams Stock Chaser Relationship Specialty Start Date End Date Bety Browning FNP [address] [place] [address] PCP - General Family Medicine 11/11/21 10/17/24 Betsy Chan MD [address] [place] [address] PCP - General Internal Medicine 11/11/24 documented as of this encounter
--- OUTSIDE RECORDS SUMMARY | 2025-02-23 20:14 | XMS_ITS | Clinical Summary ---
Author Organization [employer] Address [address] [place] [address] Care Team Providers Care Insurance Inspector Name Role Phone Betsy Chan MD Primary Care Provide r Allergies Active Allergy Reactions Criticality Noted Date Comments Lisinopril Cough 10/10/2023 Medications Blood Pressure kit 1 kit 2 times daily. Please give xlg cuff 1 kit 1 4 Active losartan (Cozaar) 25 MG tabletIndications :Primary hypertension Take 1 tablet (25 mg) by mouth Once per day. 90 tablet 3 5 01/07/20 26 Active melatonin 10 MG tabletIndications :Primary insomnia Take 1 tablet (10 mg) by mouth at bedtime. 30 tablet 1 5 Active ferrous sulfate (Fe Tabs) 325 (65 Fe) MG EC tabletIndications :Iron deficiency anemia, unspecified iron deficiency anemia type Take 1 tablet (325 mg) by mouth with breakfast. Do not crush, chew, or split. 30 tablet 2 5 04/10/19 26 Active ascorbic acid (Vitamin C) 500 MG tabletIndications :Iron deficiency anemia, unspecified iron deficiency anemia type Take it together with angel supplement 30 tablet 11 5 Active levothyroxine (Synthroid) 75 MCG tablet Take 1 tablet (75 mcg) by mouth before breakfast. 90 tablet 3 5 01/13/20 26 Active Active Problems Problem Noted Date Diagnosed Date Metrorrhagia 01/06/2025 Primary hypertension 01/06/2025 Class 3 severe obesity due t o excess calories without serious comorbidity with body mass index (BMI) of 50.0 to 59.9 in adult 01/06/2025 Primary insomnia 01/06/2025 Tinnitus of left ear 01/06/2025 Hypothyroidism 12/27/2022 12/27/2022 BMI 50.0-59.9, adult ([facility]) 12/27/2022 Encounters Date Type Department Care Team Description 01/19/2025 Telephone [facility] MEDICINE [address] [place] [phone] Betsy Chan MD Insurance 01/10/2025 Results Follow-Up [address] [phone] Betsy Chan MD CBC auto differential, Comprehensive Metabolic Panel, Hemoglobin A1c, Additional followed-up results: 5 01/06/2025 1:15 PM EDT Office Visit [address] [address] Betsy Chan MD Metrorrhagia (Primary Dx); Hypothyroidism, unspecified type; Primary hypertension; Class 3 severe obesity due to excess calories without serious comorbidity with body mass index (BMI) of 50.0 to 59.9 in adult ([facility]); Primary insomnia; Tinnitus of left ear 01/06/2025 Travel 01/05/[address] [address] Betsy Chan MD chart prep 12/30/2024 Patient Outreach [facility] MED & PEDS [address], [place] [phone] Betsy Chan MD Pre-visit Planning ([facility] unable to complete) from Last 3 Months Family History Medical [...] your housing situation today? I have chirag wihtt 02/07/[address] you li [...] Info) Description 03/01/2025 9:00 AM EST Telemedicine [facility] MEDICINE [address] [place] [address] Betsy Chan MD [address] [place] [address] Health Maintenance Due Date Last Done Comments [...] 12/27/2025 12/27/2022, 12/31/2019 Tobacco Screening 01/06/2026 01/06/2025 Diabetes: Hemoglobin A1C 01/10/2026 025, 02/07/2023, 12/22/2019 HPV/Cotest 12/28/2027 12/27/2022, 12/31/2019 Lipid Panel 01/10/2030 01/10/2025, 02/07/2023 Zoster Vaccines (1 of 2) 2036 RSV Patients and Patients Aged 60 years or older (1 - 1-dose 75+ series) 2061 HIV Screening Completed 01/10/2025, 12/22/2019 Hepatitis C Screening Completed 01/10/2025 , 02/07/2023, 12/22/2019 HIB Vaccines Aged Out No longer [...] Procedure Name Priority Date/Time Associated Diagnosis Comments US PELVIS TRANSVAGINAL Routine 3:33 PM EST Metrorrhagia TSH W/REFLEX TO FT4 Routine 01/10/2025 9 :12 AM EST Hypothyroidism, unspecified type Class 3 severe obesity due to excess calories without serious comorbidity with body mass index (BMI) of 50.0 to 59.9 in adult ([facility]) VITAMIN D,25-OH,TOTAL,IA Routine 01/10/2025 9:12 AM EST Hypothyroidism, unspecified type Class 3 severe obesity due to excess calories without serious comorbidity with body mass index (BMI) of 50.0 to 59.9 in adult ([facility]) LIPID PANEL, STANDARD Routine 01/10/2025 9:12 AM EST Hypothyroidism, unspecified type HEPATITIS C AB W/REFL TO HCV RNA, QN, PCR Routine 01/10/2025 9:12 AM EST Metrorrhagia HIV 1/2 ANTIGEN/ANTIBODY, FOURTH GENERATION W/RFL Routine 01/10/2025 9:12 AM EST Metrorrhagia HEMOGLOBIN A1C Routine 01/10/2025 9:12 AM EST Metrorrhagia Class 3 severe obesity due to excess calories without serious comorbidity with body mass index (BMI) of 50.0 to 59.9 in adult ([facility]) COMPREHENSIVE METABOLIC PANEL Routine 01/10/2025 9:12 AM EST Metrorrhagia Hypothyroidism, unspecified type Class 3 severe obesity due to excess calories without serious comorbidity with body mass index (BMI) of 50.0 to 59.9 in adult (HCC) CBC WITH AUTO DIFFERENTIAL Routine 01/10/2025 9:12 AM EST Metrorrhagia Hypothyroidism, unspecified type HPV MRNA E6/E7 REFLEX TO HPV 16, 18/45 Routine 12/27/2022 11:30 AM EDT PAP SMEAR Routine 12/27/2022 11:30 AM EDT from Last 3 Months or Most Recently Relevant to Health Maintenance Results * US Pelvis Transvaginal (02/23/2025 3:33 PM EST) Anatomical Region Laterality Modality Pelvis Ultrasound 02/23/2025 3:33 PM EST Narrative 02/23/2025 4:10 PM EST [place] [id number] Ultrasound Report Signed Patient: Hieu Lackey MR#: [id number] : 1985 Acct:[id number] Age/Sex: 39 / F ADM Date: 02/23/25 Loc: HO.US Attending Dr: Betsy Lew MD Ordering Physician: Betsy Chan MD Date of Service: 02/23/25 Procedure(s): US pelvic and transvaginal Accession Number(s): [id number] cc: Betsy Chan MD Reason for Exam: metrorrhagia with anemia EXAMINATION: US PELVIS CLINICAL INFORMATION: Menorrhagia COMPARISON: January 27, 2020 TECHNIQUE: Ultrasound of the pelvis is performed using both transabdominal and transvaginal transducers along with Doppler. Transvaginal imaging is performed due to inadequate visualization transabdominally. FINDINGS: Uterus: The uterus is in anteversion flexion and measures 10 x 6 x 6 cm. Volume: 203 cc. The double wall endometrial thickness is 7 mm. The uterus is smooth in contour and has normal myometrial echogenicity. No visible fibroid. Adnexa: Both ovaries are identified with flow on color Doppler interrogation. The left ovary demonstrates an heterogeneous, 6 cm mixed solid and anechoic abnormality. Right ovary measures 2 x 2 x 2 cm. Volume: 6.4 cc. Left ovary measures 7 x 6 x 6 cm. Volume: 141 cc. US/US pelvic and transvaginal IMPRESSION: 6 cm heterogeneous mixed solid and cystic abnormality in the left ovary. No ovarian torsion. Recommend relation correlation with serial quantitative beta-hCG.. Consider IV contrast enhanced MRI pelvis. Text message via [employer] connect to the requesting physician Dr. Betsy Lew at 4:04 PM on February 23, 2025.. Electronically signed by: Ruperto Waldrop MD 02/23/2025 04:07 PM [facility] Dictated By: Ruperto Joy MD Signed By: <Electronically signed by Ruperto Rowell MD in OV> 02/23/25 1607 DD/ 1533 TD/TT: 02/23/25 1549 Hearing Screener: Procedure Note Donotuseinterpreter, Image - 02/23/2025 [place] [address] Ultrasound Report Signed Patient: Hieu LackeyMR#: [id number] : 1985Acct:[id number] Age/Sex: 39 / FADM Date: 02/23/25 Loc: HO.US Attending Dr: Betsy Lew MD Ordering Physician: Betsy Chan MD Date of Service: 02/23/25 Procedure(s): US pelvic and transvaginal Accession Number(s): [id number] cc: Betsy Chan MD Reason for Exam: metrorrhagia with anemia EXAMINATION: US PELVIS CLINICAL INFORMATION: Menorrhagia COMPARISON: January 27, 2020 TECHNIQUE: Ultrasound of the pelvis is performed using both transabdominal and transvaginal transducers along with Doppler. Transvaginal imaging is performed due to inadequate visualization transabdominally. FINDINGS: Uterus: The uterus is in anteversion flexion and measures 10 x 6 x 6 cm. Volume: 203 cc. The double wall endometrial thickness is 7 mm. The uterus is smooth in contour and has normal myometrial echogenicity. No visible fibroid. Adnexa: Both ovaries are identified with flow on color Doppler interrogation. The left ovary demonstrates an heterogeneous, 6 cm mixed solid and anechoic abnormality. Right ovary measures 2 x 2 x 2 cm. Volume: 6.4 cc. Left ovary measures 7 x 6 x 6 cm. Volume: 141 cc. US/US pelvic and transvaginal IMPRESSION: 6 cm heterogeneous mixed solid and cystic abnormality in the left ovary. No ovarian torsion. Recommend relation correlation with serial quantitative beta-hCG.. Consider IV contrast enhanced MRI pelvis. Text message via [employer] connect to the requesting physician Dr. Betsy Lew at 4:04 PM on February 23, 2025.. Electronically signed by: Ruperto Waldrop MD 02/23/2025 04:07 PM EST Dictated By: Ruperto Joy MD Signed By: <Electronically signed by Ruperto Rowell MDin OV> 02/23/25 1607 DD/ 1533 TD/TT: 02/23/25 1549 Hearing Screener: Betsy Lew MD IMG US PROCEDURES Fin al Result * (ABNORMAL) Vitamin D, 25-Hydroxy, Total, Immunoassay (01/10/2025 9:12 AM EST) Vitamin D 25-OH Total 13.5(L) >30 ng/mL [facility] Comment: Health Based Reference Values*< 20 ng/mL Knthyhhsr49-80 ng/mL Insufficient> 30 ng/mL Sufficient*Lidia POON. N Engl J Med. 2007;357:266-280There is no well-established upper level of normal vitamin Dlevels. Some laboratories use 50 ng/mL as an upper limit ofnormal. However, toxicity is patient-dependent and may occurat any level. Careful correlation with the patient'spresentation is necessary and, if there is concern forvitamin D toxicity, treatment should be consideredirrespective of the serum level.Care must be taken in interpreting Vitamin D results fromdifferent laboratories and methodologies. Published datademonstrated that results from patients undergoinghemodialysis may show a negative bias when tested withvarious automated 25-OH vitamin D assays when compared toLC-MS/MS.When testing samples from patients whose predominant form ofVitamin D is Vitamin D2, such as patients receiving VitaminD2 supplementation, results that are subtherapeutic shouldbe confirmed with another method such as LC-MS/MS. Blood Venous blood specimen / Unknown 01/10/2025 9:12 AM EST 01/10/2025 11:27 AM EST us Betsy Lew MD LAB BLOOD ORDERABLES Final Result Performing Organization Address [facility]/ZIP Co de Phone Number [facility] [address] [place] [address] [phone] * TSH with Reflex to Free T4 (01/10/2025 9:12 AM EST) TSH reflex Free T4 3.31 0.32 - 4.0 uIU/mL [facility] Blood Venous blood specimen / Unknown 01/10/2025 9:12 AM EST 01/10/2025 11:27 AM EST us Betsy Lew MD LAB BLOOD ORDERABLES Final Result Performing Organization Address City/[facility]/ZIP Co de Phone Number [facility] [address] [place] [address] [phone] * (ABNORMAL) CBC auto differential (01/10/2025 9:12 AM EST) White Blood Count 12.2(H) 4.8 - 10.8 X10*3/uL [facility] Red Blood Count 4.40 4.20 - 5.50 X10*6/uL [facility] Hemoglobin 8.6(L) 12.0 - 16.0 g/dl [facility] Hematocrit 30.5(L) 37.0 - 47.0 % [facility] Mean Corpuscular Volume 69.3(L) 80.0 - 98.0 fL [facility] Mean Corpuscular Hemoglobin 19.5(L) 27.0 - 33.0 pg [facility] Mean Corpuscular HGB Conc 28.2(L) 31.0 - 35.0 g/dl [facility] Red Cell Distribution Width 19.9(H) 11.0 - 16.0 % [facility] Platelet Count 519(H) 160 - 400 X10*3/uL [facility] Mean Platelet Volume 10.2 9.4 - 12.3 fL [facility] Neutrophils Percent Auto 59.8 45 - 73 % [facility] Imm Gran Pct Auto 0.2 0.0 - 0.4 % [facility] Lymphocytes Percent Auto 32.2 20 - 40 % [facility] Monocytes Percent Auto 5.0 2 - 11 % [facility] Eosinophils Percent Auto 2.3 0 - 4 % [facility] Basophils Percent Auto 0.5 0 - 2 % [facility] NRBC Pct Auto 0.0 0.0 - 0.2 /100WBC [facility] Neutrophils Absolute Auto 7.3 2.0 - 8.3 x10*3/uL [facility] Imm Gran Abs Auto 0.03 0.00 - 0.03 X10*3/uL [facility] Lymphocytes Absolute Auto 3.9 1.2 - 4.9 X10*3/uL [facility] Monocytes Absolute Auto 0.6 0.1 - 1.2 X10*3/uL [facility] Eosinophils Absolute Auto 0.3 0.0 - 0.4 X10*3/uL [facility] Basophils Absolute Auto 0.1 0.0 - 0.2 X10*3/uL [facility] NRBC Abs Auto 0.000 0.0 - 0.012 X10*3/uL [facility] Blood Venous blood specimen / Unknown 01/10/2025 9:12 AM EST 01/10/2025 11:27 AM EST Betsy Lew MD LAB BLOOD ORDERABLES Final Result Performing Organization Address [facility] Co de Phone Number [facility] [address] [place] [phone] * Hepatitis C Antibody with Reflex to HCV, RNA, Quantitative, Real-Time PCR (01/10/2025 9:12 AM EST) Pathologist [facility] Hepatitis C Antibody Nonreactive Nonreactive [facility] Comment:Antibodies to HCV no t detected; does not exclude early acuteHCV infection. Blood Venous blood specimen / Unknown 01/10/2025 9:12 AM EST 01/10/2025 11:45 AM EST Betsy Lew MD LAB BLOOD ORDERABLES Final Result Performing Organization Address [facility] de Phone Number [facility] [address] [place] [phone] * HIV-1/2 Antigen and Antibodies, Fourth Generation, with Reflexes (01/10/2025 9:12 AM EST) Pathologist [facility] HIV AB/AG Nonreactive Nonreactive [facility] Comment:HIV-1 p24 Ag and/or HIV-1/HIV-2 Ab not detected.A test result that is nonreactive does not exclude thepossibility of exposure to or infection with HIV-1 and/orHIV-2. Nonreactive results in this assay for individualswith prior exposure to HIV-1 and/or HIV-2 may be due toantigen and antibody levels that are below the limit ofdetection of this assay.The [employer] HIV Ag/Ab Combo assay result andsupplemental assay results should be interpreted inconjunction with the patient's clinical presentation,history and other laboratory results. If the results areinconsistent with clinical evidence, additional testing issuggested to confirm the result. Blood Venous blood specimen / Unknown 01/10/2025 9:12 AM EST 01/10/2025 11:45 AM EST Betsy Lew MD LAB BLOOD ORDERABLES Final Result Performing Organization Address [facility] Co de Phone Number [facility] [address] [place] [phone] * Hemoglobin A1c (01/10/2025 9:12 AM EST) Hemoglobin A1c 6.0 <6.0 % [facility] Comment:Hemoglobin A1C Refer ence Range Adults: 4.8 - 6.0 % Non diabetic: < 6.0 % Goal: < 7.0 %Additional Action Suggested: > 8.0 %Note: Hemoglobin A1c results are invalid for patients with abnormal amounts of HbF. Blood transfusions may impact the HbA1c concentration in the patient sample. Estimated Average Glucose 126 mg/dL [facility] Comment:eAG = Estimated ave rage glucose which is %A1C expressed asaverage glucose, using the formula of the J3U-IsatcbiTtubqii Glucose study (ADAG), Diabetes Care, Vol.31,#8,Oct. 2007 Blood Venous blood specimen / Unknown 01/10/2025 9:12 AM EST 01/10/2025 11:45 AM EST Betsy Lew MD LAB BLOOD ORDERABLES Final Result Performing Organization Address [facility] Co de Phone Number [facility] [address] [place] [phone] * (ABNORMAL) Lipid Panel, Standard (01/10/2025 9:12 AM EST) Triglycerides 111 <150 mg/dL [facility] Comment:Desirable Triglyceri de: less than 150 mg/dLBorderline High Triglyceride 150-199 mg/dLHigh Triglyceride: 200-499 mg/dLVery High Triglyceride: greater than or equal to 5OO mg/dL Cholesterol 192 <200 mg/dL [facility] Comment:Desirable Cholestero l: less than 200 mg/dLBorderline High Cholesterol: 200-239 mg/dLHigh Cholesterol: greater than 239 mg/dL LDL Cholesterol Calculated 133(H) <100 mg/dL [facility] Comment:Desirable LDL: less than 100 mg/dLNear Optimal/Above Optimal LDL: 110- 129 mg/dLBorderline High LDL: 130-159 mg/dLHigh LDL: 160-189 mg/dLVery High LDL: greater than or equal to 190 mg/dL HDL Cholesterol 37(L) >40 mg/dL [facility] Comment:Desirable HDL: great er than 40 mg/dL Note: This HDL assay may give artificially low results in patients with liver disease. Blood Venous blood specimen / Unknown 01/10/2025 9:12 AM EST 01/10/2025 11:27 AM EST Betsy Lew MD LAB BLOOD ORDERABLES Final Result [facility] [address], [place] [phone] * (ABNORMAL) Comprehensive Metabolic Panel (01/10/2025 9:12 AM EST) Sodium 139 135 - 145 mmol/L [facility] Potassium 4.2 3.3 - 5.1 mmol/L [facility] Comment:Slight Hemolysis.Int erpret result with caution. Chloride 109(H) 96 - 108 mmol/L [facility] Carbon Dioxide 23 22 - 29 mmol/L [facility] Anion Gap 11(L) 12 - 20 [facility] Urea Nitrogen (BUN) 13 9 - 16 mg/dL [facility] Creatinine, Serum 0.75 0.5 - 1.4 mg/dL [facility] Estimated Glomerular Filt Rate >60 [facility] Comment:Chronic Kidney Disea se: Estimated GFR < 60 mL/min/1.17d2Linift Kidney Disease: Estimated GFR < 15 mL/min/1.73m2 Glucose 90 60 - 115 mg/dL [facility] Calcium 9.0 8.4 - 10.2 mg/dL [facility] Bilirubin, Total 0.5 0.0 - 1.0 mg/dL [facility] Aspartate Amino Transferase 33(H) 5 - 31 U/L [facility] Comment:Slight Hemolysis.Int erpret result with caution. Alanine Aminotransferase 27 0 - 31 U/L [facility] Total Protein 7.6 6.5 - 8.0 g/dL [facility] Albumin Level 4.2 3.5 - 5.0 g/dL [facility] Alkaline Phosphatase 100 39 - 117 U/L [facility] Blood Venous blood specimen / Unknown 01/10/2025 9:12 AM EST 01/10/2025 11:27 AM EST us Betsy Lew MD LAB BLOOD ORDERABLES Final Result [facility] [address] [place] [phone] * HPV mRNA E6/E7 w/Reflex to HPV Genotypes 16, 18/45 (12/27/2022 11:30 AM EDT) HPV nRNA E6/E7 Not Detected Not Detected [facility] Comment:Methodology: Transcr iption-Mediated AmplificationThis assay detects E6/E7 viral messenger RNA (mRNA) from 14high-risk HPV types (16,18,31,33,35,39,45,51,52,56,58,59,66,68).Cervical sources are required for HPV testing.If a vaginal source from a patient who has had atotal hysterectomy with removal of cervix wassubmitted, please contact the testing laboratoryfor alternative testing options.For additional information, please refer [email or web address](This link if provided for information/educational purposes only.)THIS TEST WAS PERFORMED AT:[facility] [place] [id number] COX MD HPV mRNA E6/E7 TNP [facility] HPV 16 RNA TNP [facility] HPV 18/45 RNA [facility] 12/27/2022 11:3 0 AM EDT 12/30/2022 9:15 AM EDT Lenora Sorenson DO LAB CYTOLOGY ORDERABLES Breanna sauceda Result [facility] [address] [place] [phone] * Pap Smear (12/27/2022 11:30 AM EDT) 12/27/2022 11:3 0 AM EDT 12/30/2022 9:15 AM EDT Narrative [facility] - 01/02/2023 9:40 AM EDT ----- ------- Name: Hieu Olivera Age/Sex: 37/F : 1985 Unit#: [id number] Attend Dr: Lenora Sorenson DO Re12/27/22 Status: DEP REF Location: HO.HHCLNP Disch: ----- ------- SPEC : [id number] RECD: 12/30/22 STATUS: GENIE FERGUSON NUM: [id number] BIENVENIDO: 12/27/22-[address]: Lenora Sorenson DO ENTERED: 12/30/22-1041 SP TYPE: Pap Smr OTHR DR: ORDERED: Pap Smear Interpretation Satisfactory for evaluation. Mild inflammation. Negative for intraepithelial lesion or malignancy. HPV mRNA E6/E7: NOT DETECTED This assay detects E6/E7 viral messenger RNA (mRNA) from 14 high-risk HPV types (16, 18, 31, 33, 35, 39, 45, 51, 52, 56, 58, 59, 66, 68) HPV testing performed by [employer], [place], [place]. See reference laboratory pion of the EMR for entire report. Clinical Information LMP: Unknown date Previous PAP test: Unknown date, WNL Material Received ThinPrep-Cervical ----- ------- Signed (signature on file) BREE Granado (ASCP) 01/02/23 0940 ----- ------- END OF REPORT us Lenora Sorenson DO LAB CYTOLOGY ORDERABLES Breanna sauceda Result [facility] [address] [place] [phone] from Last 3 Months or Most Recently Relevant to Health Maintenance Insurance Care Teams Insurance Inspector Relationship Specialty Start Date End Date Betsy Chan MD [address] [place] [phone] PCP - General Internal Medicine 11/11/24
== END 2025-02-23 15:15 | disposition home or self-care (01) ==
LOC: HO.US 15:14
PROVIDERS: PCP Internal Medicine; Visit Provider Internal Medicine
DX: N92.1 Excessive and frequent menstruation with irregular cycle (principal); D64.9 Anemia, unspecified
CPT/HCPCS: 76830; 76856

== ENCOUNTER → 2025-02-23 15:15 | Outpatient (BNV) | payer MEDICAID, SELFPAY | PROVIDERS: PCP Internal Medicine; Visit Provider Radiology Diagnostic Radiology | DX: N83.292 Other ovarian cyst, left side (principal) | CPT/HCPCS: 76830; 76856 ==

== ENCOUNTER 2025-03-07 08:25 | Outpatient (REF) | payer MEDICAID, SELFPAY ==
--- OUTSIDE RECORDS SUMMARY | 2025-03-07 08:29 | XMS_ITS | Clinical Summary ---
Author Organization [employer] Address [address] [facility] [address] [place] [address] Care Team Providers Care Other Wood Processing Machine Operator Name Role Phone Betsy Chan MD Primary Care Provide r Allergies Active Allergy Reactions Criticality Noted Date Comments Lisinopril Cough 10/10/2023 Medications Blood Pressure kit 1 kit 2 times daily. Please give xlg cuff 1 kit 1 08/25/19 24 Active losartan (Cozaar) 25 MG tabletIndicatio ns:Primary hypertension Take 1 tablet (25 mg) by mouth Once per day. 90 tablet 3 01/07/20 25 026 Active melatonin 10 MG tabletIndicatio ns:Primary insomnia Take 1 tablet (10 mg) by mouth at bedtime. 30 tablet 1 01/07/20 25 Active ascorbic acid (Vitamin C) 500 MG tabletIndicatio ns:Iron deficiency anemia, unspecified iron deficiency anemia type Take it together with angel supplement 30 tablet 11 01/11/20 25 Active levothyroxine (Synthroid) 75 MCG tabletIndicatio ns:Hypothyroidi sm, unspecified type Take 1 tablet (75 mcg) by mouth before breakfast. 90 tablet 3 02/25/20 25 026 Active ferrous gluconate (Fergon) 324 (38 Fe) MG tabletIndicatio ns:Iron deficiency anemia due to chronic blood loss Take 1 tablet (324 mg) by mouth every other day. 15 tablet 2 03/01/20 25 026 Active ergocalciferol (Vitamin D2) 1.25 MG (65917 UT) capsuleIndicati ons:Vitamin D deficiency Take 1 capsule (1.25 mg) by mouth 1 (one) time per week. 8 capsule 03/01/20 Active ferrous sulfate (Fe Tabs) 325 (65 Fe) MG EC tabletIndicatio ns:Iron deficiency anemia, unspecified iron deficiency anemia type Take 1 tablet (325 mg) by mouth with breakfast. Do not crush, chew, or split. 30 tablet 2 01/11/20 25 025 Discontinued levothyroxine (Synthroid) 75 MCG tablet Take 1 tablet (75 mcg) by mouth before breakfast. 90 tablet 3 01/13/20 25 025 Discontinued(R eorder (will not trigger notification to Pharmacy)) Active Problems Problem Noted Date Diagnosed Date Iron deficiency anemia due to chronic blood loss 03/01/2025 Mass of left ovary 03/01/2025 Vitamin D deficiency 03/01/2025 Metrorrhagia 01/06/2025 Primary hypertension 01/06/2025 Class 3 severe obesity due t o excess calories without serious comorbidity with body mass index (BMI) of 50.0 to 59.9 in adult 01/06/2025 Primary insomnia 01/06/2025 Tinnitus of left ear 01/06/2025 Hypothyroidism 12/27/2022 12/27/2022 BMI 50.0-59.9, adult ([facility]) 12/27/2022 Encounters Date Type Department Care Team Description 03/01/2025 9:00 AM EST Telemedicine [facility] [address] [place] [phone] Betsy Chan MD Iron deficiency anemia due to chronic blood loss; Mass of left ovary; Vitamin D deficiency; Primary hypertension; Class 3 severe obesity due to excess calories without serious comorbidity with body mass index (BMI) of 50.0 to 59.9 in adult ([facility]) 03/01/2025 Travel 02/28/2025 Telephone [facility] [address] [place] [address] Betsy Chan MD Insurance 02/28/2025 Telephone [facility] [address] [place] [address] Betsy Chan MD chart prep 02/24/2025 Orders Only [facility] [address] [place] [phone] Betsy Chan MD Hypothyroidism, unspecified type (Primary Dx) 01/19/[address] [address] Betsy Chan MD Insurance 01/10/2025 Results Follow-Up [address] [address] Betsy Chan MD CBC auto differential, Comprehensive Metabolic Panel, Hemoglobin A1c, Additional followed-up results: 5 01/06/2025 1:15 PM EDT Office Visit [address] [address] Betsy Chan MD Metrorrhagia (Primary Dx); Hypothyroidism, unspecified type; Primary hypertension; Class 3 severe obesity due to excess calories without serious comorbidity with body mass index (BMI) of 50.0 to 59.9 in adult (HCC); Primary insomnia; Tinnitus of left ear 01/06/2025 Travel 01/05/[address] [address] Betsy Chan MD chart prep 12/30/2024 Patient Outreach [facility] [address] [place], [place] [phone] Betsy Chan MD Pre-visit Planning ([facility] unable to complete) from Last 3 [...] Date Recorded Patient Health Questionnaire-9 Score 0 03/01/2025 Patient Health Questionnaire-9 Score 0 03/01/2025 Last PHQ-9: Questionnaire Data Not on file 1 05/02/2024 Housing Stability Answer Date Recorded What is your housing situation today? I have chirag whitt 03/01/[address] you li ve. Do you have problems with any of the following? None of the above 03/01/2025 Food Insecurity Answer Date Recorded Within the past 12 months, y ou worried that your food would run out before you got money to buy more: Never True 03/01/2025 Within the past 12 months,th e food you bought just didn't last and you didn't have enough money to get more: Never True Transportation Answer Date Recorded In the past 12 months, has l ack of transportation kept you from medical appts, meetings, work or from getting things needed for daily living? No 03/01/2025 Utilities Answer Date Recorded In the past 12 months, has t he electric, gas, oil or water company threatened to shut off services in your home? No 03/01/2025 Depression Answer Date Recorded Patient Health Questionnaire-2 Score 0 03/01/2025 Internet Access Answer Date Recorded Internet Access Q1 Yes 03/01/2025 Internet Access Q2 Not on file 03/01/2025 Comments No Sex and Gender Information Value [...] Care Team (Late st Contact Info) Description 05/31/2025 9:15 AM EDT Office Visit [facility] [address] [place] [address] Betsy Chan MD [address] [place] [address] Health Maintenance Due Date Last Done Comments Family Planning (PISQ) 2001 HPV Vaccines (1 - 3-dose series) 2001 DTaP/Tdap/Td Vaccines (1 - Tdap) 2005 Hepatitis B Vaccines (1 of 3 - 19+ 3-dose series) 2005 COVID-19 Vaccine ( - 2024-2 6 season) 2024 08/20/2020, 07/23/2020 Influenza Vaccine (#1) 2024 Cervical Cancer Screening 12/27/2025 Pap Smear 12/27/2025 12/27/2022, 12/31/2019 Tobacco Screening 01/06/2026 01/06/2025 Diabetes: Hemoglobin A1C 01/10/2026 025, 02/07/2023, 12/22/2019 Alcohol/Substance Use Screening 03/01/2026 03/01/2025 Depression Screening 03/01/2026 03/01/2025, 03/01/2025 Disability Screening 03/01/2026 03/01/2025 SDOH Screening 03/01/2026 03/01/2025 HPV/Cotest 12/28/2027 12/27/2022, 12/31/2019 Lipid Panel 01/10/2030 [...] 59.9 in adult ([facility]) VITAMIN D,25-OH,TOTAL,IA Routine 01/10/2025 9:12 AM EST Hypothyroidism, unspecified type Class 3 severe obesity due to excess calories without serious comorbidity with body mass index (BMI) of 50.0 to 59.9 in adult ([facility]) LIPID PANEL, STANDARD Routine 01/10/2025 9:12 [...] 59.9 in adult ([facility]) COMPREHENSIVE METABOLIC PANEL Routine 01/10/2025 9:12 [...] PM EST Narrative 02/23/2025 4:10 PM EST [place] [address] Ultrasound Report Signed Patient: Gela Lackey MR#: [id number] : 1985 Acct:[id number] Age/Sex: 39 / F ADM Date: 02/23/25 Loc: HO.US Attending Dr: Betsy Lew MD Ordering Physician: Betsy Chan MD Date of Service: 02/23/25 Procedure(s): US pelvic and transvaginal Accession Number(s): [id number] cc: Betsy Chan MD Reason for Exam: [...] contrast enhanced MRI pelvis. Text message via [employer] connect to the requesting physician Dr. Betsy Lew at 4:04 PM on February 23, 2025.. Electronically signed by: Ruperto Waldrop MD 02/23/2025 04:07 PM [facility] Dictated By: Ruperto Joy MD Signed By: <Electronically signed by Ruperto Rowell MD in OV> 02/23/25 1607 DD/ 1533 TD/TT: 02/23/25 1549 Assistant Program Manager: Procedure Note Donotuseinterpreter, Image - 02/23/2025 [place] [address] Ultrasound Report Signed Patient: Gela LackeyMR#: [id number] : 1985Acct:[id number] Age/Sex: 39 / FADM Date: 02/23/25 Loc: HO.US Attending Dr: Betsy Lew MD Ordering Physician: Betsy Chan MD Date of Service: 02/23/25 Procedure(s): US pelvic and transvaginal Accession Number(s): [id number] cc: Betsy Chan MD Reason for Exam: [...] contrast enhanced MRI pelvis. Text message via [employer] connect to the requesting physician Dr. Betsy Lew at 4:04 PM on February 23, 2025.. Electronically signed by: Ruperto Waldrop MD 02/23/2025 04:07 PM EST Dictated By: Ruperto Joy MD Signed By: <Electronically signed by Ruperto Rowell MDin OV> 02/23/25 1607 DD/ 1533 TD/TT: 02/23/25 1549 Assistant Program Manager: Betsy Lew MD IMG US PROCEDURES Fin al Result * (ABNORMAL) Vitamin D, 25-Hydroxy, Total, Immunoassay (01/10/2025 9:12 AM EST) Vitamin D 25-OH Total 13.5(L) >30 ng/mL [facility] Comment: Health Based Reference Values*< 20 ng/mL Dqxbvedgd52-04 ng/mL Insufficient> 30 ng/mL Sufficient*Lidia POON. N [...] BLOOD ORDERABLES Final Result Performing Organization Address [facility]/ZIP Co de Phone Number [facility] [address] [place] [address] [phone] * TSH with Reflex to Free T4 (01/10/2025 9:12 AM EST) TSH reflex Free T4 3.31 0.32 - 4.0 uIU/mL [facility] Blood Venous blood specimen / Unknown 01/10/2025 9:12 AM EST 01/10/2025 11:27 AM EST us Betsy Lew MD LAB BLOOD ORDERABLES Final Result Performing Organization Address City/[facility]/ZIP Co de Phone Number [facility] [address] [place] [phone] * (ABNORMAL) CBC auto differential (01/10/2025 9:12 AM EST) White Blood Count 12.2(H) 4.8 - 10.8 X10*3/uL [facility] Red Blood Count 4.40 4.20 - 5.50 X10*6/uL [facility] Hemoglobin 8.6(L) 12.0 - 16.0 g/dl [facility] Hematocrit 30.5(L) 37.0 - 47.0 % [facility] Mean Corpuscular Volume 69.3(L) 80.0 - 98.0 fL [facility] Mean Corpuscular Hemoglobin 19.5(L) 27.0 - 33.0 pg [facility] Mean Corpuscular HGB Conc 28.2(L) 31.0 - 35.0 g/dl [facility] Red Cell Distribution Width 19.9(H) 11.0 - 16.0 % [facility] Platelet Count 519(H) 160 - 400 X10*3/uL [facility] Mean Platelet Volume 10.2 9.4 - 12.3 fL [facility] Neutrophils Percent Auto 59.8 45 - 73 % [facility] Imm Gran Pct Auto 0.2 0.0 - 0.4 % [facility] Lymphocytes Percent Auto 32.2 20 - 40 % [facility] Monocytes Percent Auto 5.0 2 - 11 % [facility] Eosinophils Percent Auto 2.3 0 - 4 % [facility] Basophils Percent Auto 0.5 0 - 2 % [facility] NRBC Pct Auto 0.0 0.0 - 0.2 /100WBC [facility] Neutrophils Absolute Auto 7.3 2.0 - 8.3 x10*3/uL [facility] Imm Gran Abs Auto 0.03 0.00 - 0.03 X10*3/uL [facility] Lymphocytes Absolute Auto 3.9 1.2 - 4.9 X10*3/uL [facility] Monocytes Absolute Auto 0.6 0.1 - 1.2 X10*3/uL [facility] Eosinophils Absolute Auto 0.3 0.0 - 0.4 X10*3/uL [facility] Basophils Absolute Auto 0.1 0.0 - 0.2 X10*3/uL [facility] NRBC Abs Auto 0.000 0.0 - 0.012 X10*3/uL [facility] Blood Venous blood specimen / Unknown 01/10/2025 9:12 AM EST 01/10/2025 11:27 AM EST Betsy Lew MD LAB BLOOD ORDERABLES Final Result Performing Organization Address [facility] Co de Phone Number [facility] [address] [place] [phone] * Hepatitis C Antibody with Reflex to HCV, RNA, Quantitative, Real-Time PCR (01/10/2025 9:12 AM EST) Hepatitis C Antibody Nonreactive Nonreactive [facility] Comment:Antibodies to HCV no t detected; does not exclude early acuteHCV infection. Blood Venous blood specimen / Unknown 01/10/2025 9:12 AM EST 01/10/2025 11:45 AM EST Betsy Lew MD LAB BLOOD ORDERABLES Final Result Performing Organization Address [facility] de Phone Number [facility] [address] [place] [phone] * HIV-1/2 Antigen and Antibodies, Fourth Generation, with Reflexes (01/10/2025 9:12 AM EST) Pathologist [facility] HIV AB/AG Nonreactive Nonreactive [facility] Comment:HIV-1 p24 Ag and/or HIV-1/HIV-2 Ab not detected.A test result that is nonreactive does not exclude thepossibility of exposure to or infection with HIV-1 and/orHIV-2. Nonreactive results in this assay for individualswith prior exposure to HIV-1 and/or HIV-2 may be due toantigen and antibody levels that are below the limit ofdetection of this assay.The [employer]ure HIV Ag/Ab Combo assay result andsupplemental assay results should be interpreted inconjunction with the patient's clinical presentation,history and other laboratory results. If the results areinconsistent with clinical evidence, additional testing issuggested to confirm the result. Blood Venous blood specimen / Unknown 01/10/2025 9:12 AM EST 01/10/2025 11:45 AM EST us Betsy Lew MD LAB BLOOD ORDERABLES Final Result Performing Organization Address [facility] Co de Phone Number [facility] [address] [place] [phone] * Hemoglobin A1c (01/10/2025 9:12 AM EST) Hemoglobin A1c 6.0 <6.0 % [facility] Comment:Hemoglobin A1C Refer ence Range Adults: 4.8 - 6.0 % Non diabetic: < 6.0 % Goal: < 7.0 %Additional Action Suggested: > 8.0 %Note: Hemoglobin A1c results are invalid for patients with abnormal amounts of HbF. Blood transfusions may impact the HbA1c concentration in the patient sample. Estimated Average Glucose 126 mg/dL [facility] Comment:eAG = Estimated ave rage glucose which is %A1C expressed asaverage glucose, using the formula of the M2O-LdsviymXefhkqh Glucose study (ADAG), Diabetes Care, Vol.31,#8,Oct. 2007 Blood Venous blood specimen / Unknown 01/10/2025 9:12 AM EST 01/10/2025 11:45 AM EST us Betsy Lew MD LAB BLOOD ORDERABLES Final Result Performing Organization Address [facility] Co mo Phone Number [facility] [address] [place] [phone] * (ABNORMAL) Lipid Panel, Standard (01/10/2025 9:12 AM EST) Triglycerides 111 <150 mg/dL [facility] Comment:Desirable Triglyceri de: less than 150 mg/dLBorderline High Triglyceride 150-199 mg/dLHigh Triglyceride: 200-499 mg/dLVery High Triglyceride: greater than or equal to 5OO mg/dL Cholesterol 192 <200 mg/dL [facility] Comment:Desirable Cholestero l: less than 200 mg/dLBorderline High Cholesterol: 200-239 mg/dLHigh Cholesterol: greater than 239 mg/dL LDL Cholesterol Calculated 133(H) <100 mg/dL [facility] Comment:Desirable LDL: less than 100 mg/dLNear Optimal/Above Optimal LDL: 110- 129 mg/dLBorderline High LDL: 130-159 mg/dLHigh LDL: 160-189 mg/dLVery High LDL: greater than or equal to 190 mg/dL HDL Cholesterol 37(L) >40 mg/dL [facility] Comment:Desirable HDL: great er than 40 mg/dL Note: This HDL assay may give artificially low results in patients with liver disease. Blood Venous blood specimen / Unknown 01/10/2025 9:12 AM EST 01/10/2025 11:27 AM EST us Betsy Lew MD LAB BLOOD ORDERABLES Final Result [facility] [address] [place] [address] [phone] * (ABNORMAL) Comprehensive Metabolic Panel (01/10/2025 9:12 AM EST) Sodium 139 135 - 145 mmol/L [facility] Potassium 4.2 3.3 - 5.1 mmol/L [facility] Comment:Slight Hemolysis.Int erpret result with caution. Chloride 109(H) 96 - 108 mmol/L [facility] Carbon Dioxide 23 22 - 29 mmol/L [facility] Anion Gap 11(L) 12 - 20 [facility] Urea Nitrogen (BUN) 13 9 - 16 mg/dL [facility] Creatinine, Serum 0.75 0.5 - 1.4 mg/dL [facility] Estimated Glomerular Filt Rate >60 [facility] Comment:Chronic Kidney Disea se: Estimated GFR < 60 mL/min/1.27n8Jggpyx Kidney Disease: Estimated GFR < 15 mL/min/1.73m2 Glucose 90 60 - 115 mg/dL [facility] Calcium 9.0 8.4 - 10.2 mg/dL [facility] Bilirubin, Total 0.5 0.0 - 1.0 mg/dL [facility] Aspartate Amino Transferase 33(H) 5 - 31 U/L [facility] Comment:Slight Hemolysis.Int erpret result with caution. Alanine Aminotransferase 27 0 - 31 U/L [facility] Total Protein 7.6 6.5 - 8.0 g/dL [facility] Albumin Level 4.2 3.5 - 5.0 g/dL [facility] Alkaline Phosphatase 100 39 - 117 U/L [facility] Blood Venous blood specimen / Unknown 01/10/2025 9:12 AM EST 01/10/2025 11:27 AM EST Betsy Lew MD LAB BLOOD ORDERABLES Final Result [facility] [address] [place] [address] [phone] * HPV mRNA E6/E7 w/Reflex to HPV Genotypes 16, 18/45 (12/27/2022 11:30 AM EDT) HPV nRNA E6/E7 Not Detected Not Detected [facility] Comment:Methodology: Transcr iption-Mediated AmplificationThis assay detects E6/E7 viral messenger RNA (mRNA) from 14high-risk HPV types (16,18,31,33,35,39,45,51,52,56,58,59,66,68).Cervical sources are required for HPV testing.If a vaginal source from a patient who has had atotal hysterectomy with removal of cervix wassubmitted, please contact the testing laboratoryfor alternative testing options.For additional information, please refer [email or web address](This link if provided for information/educational purposes only.)THIS TEST WAS PERFORMED AT:[employer] [place] [id number] COX MD HPV mRNA E6/E7 TNP [facility] HPV 16 RNA [facility] HPV 18/45 RNA [facility] 12/27/2022 11:3 0 AM EDT 12/30/2022 9:15 AM EDT Lenora Sorenson DO LAB CYTOLOGY ORDERABLES Breanna sauceda Result [facility] [address] [place] [phone] * Pap Smear (12/27/2022 11:30 AM EDT) 12/27/2022 11:3 0 AM EDT 12/30/2022 9:15 AM EDT Narrative [facility] - 01/02/2023 9:40 AM EDT ----- ------- Name: Gela Figueroa Age/Sex: 37/F : 1985 Unit#: [id number] Attend Dr: Lenora Sorenson DO Re12/27/22 Status: DEP REF Location: [facility] Disch: ----- ------- SPEC : [id number] RECD: 12/30/22 STATUS: GENIE FERGUSON NUM: [id number] BIENVENIDO: 12/27/221130 SUBM DR: Lenora Sorenson DO ENTERED: 12/30/22-1041 [...] 59, 66, 68) HPV testing performed by [facility], [place], [place]. See reference laboratory pion of the EMR for entire report. Clinical Information LMP: Unknown date Previous PAP test: Unknown date, WNL Material Received ThinPrep-Cervical ----- ------- Signed (signature on file) BREE Granado (ASCP) 01/02/23 0940 ----- ------- END OF REPORT Lenora Sorenson DO LAB CYTOLOGY ORDERABLES Breanna sauceda Result [facility] [address] [place] [phone] from Last 3 Months or Most Recently Relevant to Health Maintenance [place] [address] [place] [address] C3 Care Teams Other Wood Processing Machine Operator Relationship Specialty Start Date End Date Betsy Chan MD [address] [place] [phone] PCP - General Internal Medicine 11/11/24
--- OUTSIDE RECORDS SUMMARY | 2025-03-07 08:29 | XMS_ITS | Encounter Summary ---
Author Organization [employer] Address [address] [facility] [address] [place] [address] Care Team Providers Care Commissary Worker Name Role Phone Bety Browinng Primary Care Provider [phone] Besty Chan MD Primary Care Provide r Reason for Visit * Reason Comments Med Refill Encounter Details Date Type Department Care Team (Late st Contact Info) Description 10/13/2024 Refill [facility] [address] [place], [place] [phone] Bety Browning FNP [address] [place], [place] [phone] Social History Tobacco Use Types Packs/Day Years [...] Description 05/31/2025 9:15 AM EDT Office Visit [facility] [address] [place] [address] Betsy Chan MD [address] [place] [address] documented as of this encounter Visit Diagnoses Not on filedocumented in this encounter Additional Health Concerns Assessment Noted Time PHQ-9 Depression Total Score: 0 08/25/19 24 4:37 PM EDT documented as of this encounter Care Teams Commissary Worker Relationship Specialty Start Date End Date Bety Browning FNP [address] [place] [phone] PCP - General Family Medicine 11/11/21 10/17/24 Betsy Chan MD [address] [place] [phone] PCP - General Internal Medicine 11/11/24 documented as of this encounter
[2025-03-07 11:14] LABS: MANUAL DIFF FLAG NO
[2025-03-07 11:16] LABS: Hematocrit 28.4 % (37.0-47.0); Hemoglobin 8.0 g/dl (12.0-16.0); Imm Gran Abs Auto 0.09 X10*3/uL (0.00-0.03); Imm Gran Pct Auto 0.6 % (0.0-0.4); Lymphocytes Absolute Auto 3.7 X10*3/uL (1.2-4.9); Mean Corpuscular HGB Conc 28.2 g/dl (31.0-35.0); Mean Corpuscular Hemoglobin 19.8 pg (27.0-33.0); Mean Corpuscular Volume 70.3 fL (80.0-98.0); NRBC Abs Auto 0.000 X10*3/uL (0.0-0.012); NRBC Pct Auto 0.0 /100WBC (0.0-0.2); Platelet Count 468 X10*3/uL (160-400); Red Blood Count 4.04 X10*6/uL (4.20-5.50); White Blood Count 14.8 X10*3/uL (4.8-10.8)
[2025-03-07 11:47] LABS: Ferritin 9 ng/mL (10-122); Iron 17 mcg/dL (30-160); Percent Iron Saturation 5 % (15-50); Total Iron Binding Capacity 326 mcg/dL (228-428); Unsaturated Iron Binding 309 ug/dL
[2025-03-07 12:01] LABS: Folate 9.2 ng/mL (> or = 4.0); Vitamin B12 249 pg/mL (200-900)
== END 2025-03-07 08:26 | disposition home or self-care (01) ==
LOC: HO.HHCL 08:25
PROVIDERS: PCP Internal Medicine; Visit Provider Internal Medicine
DX: D50.0 Iron deficiency anemia secondary to blood loss (chronic) (principal); N83.8 Other noninflammatory disorders of ovary, fallopian tube and broad ligament
CPT/HCPCS: 36415; 82607; 82728; 82746; 83540; 84702; 85025

== ENCOUNTER 2025-03-08 15:03 | Outpatient (REF) | payer MEDICAID, SELFPAY ==
--- NOTE | ~2025-03-08 | MR_ITS ---
CLINICAL HISTORY: mass on left ovary 6 cm Exam: MRI of the pelvis, including gadolinium enhanced imaging. Comparison: Pelvic ultrasound 02/23/2025. Findings: Uterus measures 12.1 cm craniocaudad dimension, 6.2 cm AP dimension and 6.5 cm transverse dimension. Endometrium is thickened measuring up to 16 mm of the fundus and 2.3 cm AP dimension at lower uterine segment (measured on 3; 16). There is a heterogeneous T2 intermediate intensity filling defect within the endometrial cavity which reveals enhancement, concerning for endometrial neoplasm versus atypical submucosal uterine fibroid. This measures up to 5.6 cm craniocaudad dimension and 2.3 cm maximal AP dimension (measured on 3; 16). No other endometrial lesions. Right ovary measures up to 3.2 cm and reveals a similar-appearing 2.4 cm cyst or follicle. Left ovary is obscured by a large heterogeneous complex cystic and solid lesion which measures up to 6.4 x 5.5 cm oblique AP and transverse dimension (measured on 4; 13), and up to 7.1 cm craniocaudad dimension (13; 20). This reveals large solid enhancing masses or mural nodules measuring up to 3.9 cm (measured on 3; 20), findings highly concerning for cystadenoma/cystadenocarcinoma. No other definable adnexal lesions. No significant free fluid. Urinary bladder is free of gross filling defects. No other pelvic masses or adenopathy. Visualized bowel loops reveal no significant wall thickening or distention. Visualized osseous structures reveal no destructive osseous lesions. Impression: 1. 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 2. Additionally, large enhancing solid endometrial filling defect or mass measuring up to 5.6 cm, concerning for endometrial neoplasm versus atypical submucosal fibroid. This document has been electronically signed by: Alfie Frey MD on 03/08/2025 17:13:34
--- OUTSIDE RECORDS SUMMARY | 2025-03-08 18:44 | XMS_ITS | Clinical Summary ---
Author Organization [employer] Address [address] [place] [address] Care Team Providers Care Skiver Blockers Name Role Phone Betsy Chan MD Primary [...] 026 Active ergocalciferol (Vitamin D2) 1.25 MG (96744 UT) capsuleIndicati ons:Vitamin D deficiency Take 1 [...] Hypothyroidism 12/27/2022 12/27/2022 BMI 50.0-59.9, adult ([facility]) 12/27/2022 Encounters Date Type Department Care Team Description 03/01/2025 9:00 AM EST Telemedicine [facility] [address] [place] [phone] Betsy Chan MD Iron deficiency anemia due to chronic blood loss; Mass of left ovary; Vitamin D deficiency; Primary hypertension; Class 3 severe obesity due to excess calories without serious comorbidity with body mass index (BMI) of 50.0 to 59.9 in adult ([facility]) 03/01/2025 Travel 02/28/2025 Telephone [facility] [address] [place] [address] Betsy Chan MD Insurance 02/28/2025 Telephone [facility] [address] [place] [address] Betsy Chan MD chart prep 02/24/2025 Orders Only [facility] [address] [place] [phone] Betsy Chan MD Hypothyroidism, unspecified type (Primary Dx) 01/19/[address] [address] Betsy Chan MD Insurance 01/10/2025 Results Follow-Up [address] [address] Betsy Chan MD CBC auto differential, Comprehensive Metabolic Panel, Hemoglobin A1c, Additional followed-up results: 5 01/06/2025 1:15 PM EDT Office Visit [address] [address] Betsy Chan MD Metrorrhagia (Primary Dx); Hypothyroidism, unspecified type; Primary hypertension; Class 3 severe obesity due to excess calories without serious comorbidity with body mass index (BMI) of 50.0 to 59.9 in adult (HCC); Primary insomnia; Tinnitus of left ear 01/06/2025 Travel 01/05/[address] [address] Betsy Chan MD chart prep 12/30/2024 Patient Outreach [facility] [address] [place], [place] [phone] Betsy Chan MD Pre-visit Planning ([facility] unable to complete) from Last 3 Months [...] Description 05/31/2025 9:15 AM EDT Office Visit [facility] [address] [place] [address] Betsy Chan MD [address] [place] [address] Health Maintenance Due Date Last Done Comments [...] Procedure Name Priority Date/Time Associated Diagnosis Comments MR PELVIS W AND WO CONTRAST STAT 03/08/2025 5:13 PM EST Mass of left ovary VITAMIN B12/FOLATE, SERUM PANEL Routine 03/07/2025 8:29 AM EST Iron deficiency anemia due to chronic blood loss FERRITIN Routine 03/07/2025 8:29 AM EST Iron deficiency anemia due to chronic blood loss IRON AND TOTAL IRON BINDING CAPACITY Routine 03/07/2025 8:29 AM EST Iron deficiency anemia due to chronic blood loss CBC WITH AUTO DIFFERENTIAL Routine 03/07/2025 8:29 AM EST Iron deficiency anemia due to chronic blood loss HCG, TOTAL, QN Routine 03/07/2025 8:29 AM EST Mass of left ovary US PELVIS TRANSVAGINAL Routine 3:33 PM EST Metrorrhagia TSH W/REFLEX TO FT4 Routine 01/10/2025 9 :12 AM EST Hypothyroidism, unspecified type Class 3 severe obesity due to excess calories without serious comorbidity with body mass index (BMI) of 50.0 to 59.9 in adult (HCC) VITAMIN D,25-OH,TOTAL,IA Routine 01/10/2025 9:12 AM EST Hypothyroidism, unspecified type Class 3 severe obesity due to excess calories without serious comorbidity with body mass index (BMI) of 50.0 to 59.9 in adult (HCC) LIPID PANEL, STANDARD Routine 01/10/2025 9:12 AM [...] of 50.0 to 59.9 in adult (HCC) COMPREHENSIVE METABOLIC PANEL Routine 01/10/2025 9:12 AM [...] Recently Relevant to Health Maintenance Results * MR Pelvis w/ and w/o Contrast (03/08/2025 5:13 PM EST) Anatomical Region Laterality Modality Body, Pelvis Magnetic Resonan ce 03/08/2025 5:13 PM EST Narrative 03/08/2025 5:15 PM EST [address] [address] Magnetic Resonance Report Signed Patient: Gela Lackey MR#: [id number] : 1985 Acct:[id number] Age/Sex: 39 / F ADM Date: 03/08/25 Loc: HO.MRI Attending Dr: Betsy Lew MD Ordering Physician: Betsy Chan MD Date of Service: 03/08/25 Procedure(s): MR pelvis wo/w con Accession Number(s): [id number] cc: Betsy Chan MD Reason for Exam: mass on left ovary 6 cm CLINICAL HISTORY: mass on left ovary 6 cm Exam: MRI of the pelvis, including gadolinium enhanced imaging. Comparison: Pelvic ultrasound 02/23/2025. Findings: Uterus measures 12.1 cm craniocaudad dimension, 6.2 cm AP dimension and 6.5 cm transverse dimension. Endometrium is thickened measuring up to 16 mm of the fundus and 2.3 cm AP dimension at lower uterine segment (measured on 3; 16). There is a heterogeneous T2 intermediate intensity filling defect within the endometrial cavity which reveals enhancement, concerning for endometrial neoplasm versus atypical submucosal uterine fibroid. This measures up to 5.6 cm craniocaudad dimension and 2.3 cm maximal AP dimension (measured on 3; 16). No other endometrial lesions. Right ovary measures up to 3.2 cm and reveals a similar-appearing 2.4 cm cyst or follicle. Left ovary is obscured by a large heterogeneous complex cystic and solid lesion which measures up to 6.4 x 5.5 cm oblique AP and transverse dimension (measured on 4; 13), and up to 7.1 cm craniocaudad dimension (13; 20). This reveals large solid enhancing masses or mural nodules measuring up to 3.9 cm (measured on 3; 20), findings highly concerning for cystadenoma/cystadenocarcinoma. No other definable adnexal lesions. No significant free fluid. Urinary bladder is free of gross filling defects. No other pelvic masses or adenopathy. Visualized bowel loops reveal no significant wall thickening or distention. Visualized osseous structures reveal no destructive osseous lesions. Impression: 1. 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 2. Additionally, large enhancing solid endometrial filling defect or mass measuring up to 5.6 cm, concerning for endometrial neoplasm versus atypical submucosal fibroid. This document has been electronically signed by: Alfie Frey MD on 03/08/2025 17:13:34 Dictated By: Alfie Frey MD Signed By: <Electronically signed by Alfie Frey MD in OV> 03/08/251712 DD/ 12 TD/TT: 03/08/251712 Powder Mixer: Procedure Note Donotuseinterpreter, Image - 03/08/[address] [address] Magnetic Resonance Report Signed Patient: Magui Lackey#: [id number] : 1985Acct:[id number] Age/Sex: 39 / FADM Date: 03/08/25 Loc: HO.MRI Attending Dr: Betsy Lew MD Ordering Physician: Betsy Chan MD Date of Service: 03/08/25 Procedure(s): MR pelvis wo/w con Accession Number(s): [id number] cc: Betsy Chan MD Reason for Exam: mass on left ovary 6 cm CLINICAL HISTORY: mass on left ovary 6 cm Exam: MRI of the pelvis, including gadolinium enhanced imaging. Comparison: Pelvic ultrasound 02/23/2025. Findings: Uterus measures 12.1 cm craniocaudad dimension, 6.2 cm AP dimension and 6.5 cm transverse dimension. Endometrium is thickened measuring up to 16 mm of the fundus and 2.3 cm AP dimension at lower uterine segment (measured on 3; 16). There is a heterogeneous T2 intermediate intensity filling defect within the endometrial cavity which reveals enhancement, concerning for endometrial neoplasm versus atypical submucosal uterine fibroid. This measures up to 5.6 cm craniocaudad dimension and 2.3 cm maximal AP dimension (measured on 3; 16). No other endometrial lesions. Right ovary measures up to 3.2 cm and reveals a similar-appearing 2.4 cm cyst or follicle. Left ovary is obscured by a large heterogeneous complex cystic and solid lesion which measures up to 6.4 x 5.5 cm oblique AP and transverse dimension (measured on 4; 13), and up to 7.1 cm craniocaudad dimension (13; 20). This reveals large solid enhancing masses or mural nodules measuring up to 3.9 cm (measured on 3; 20), findings highly concerning for cystadenoma/cystadenocarcinoma. No other definable adnexal lesions. No significant free fluid. Urinary bladder is free of gross filling defects. No other pelvic masses or adenopathy. Visualized bowel loops reveal no significant wall thickening or distention. Visualized osseous structures reveal no destructive osseous lesions. Impression: 1. 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 2. Additionally, large enhancing solid endometrial filling defect or mass measuring up to 5.6 cm, concerning for endometrial neoplasm versus atypical submucosal fibroid. This document has been electronically signed by: Alfie Frey MD on 03/08/2025 17:13:34 Dictated By: Alfie Frey MD Signed By: <Electronically signed by Alfie Frey MD in OV> 03/08/251712 DD/ 12 TD/TT: 03/08/251712 Powder Mixer: Betsy Lew MD IMG MRI PROCEDURES Fi nal Result * Vitamin B12 (Cobalamin) and Folate Panel, Serum (03/07/2025 8:29 AM EST) Vitamin B12 249 200 - 900 pg/mL [facility] Comment:NORMAL 200-900 PG/ML INDETERMINATE 160-199 PG/ML DEFICIENT < 160 PG/ML Folate 9.2 > or = 4.0 ng/mL [facility] Comment:Reference Values:> o r = 4.0 ng/mL< 4.0 ng/mL suggests folate deficiency Methotrexate, aminopterin and folinic acid(leucovorin) are chemotherapeutic agents whose molecularstructures are similar to folate; therefore, the Architectfolate assay cannot be used for patients using these drugs. Blood Venous blood specimen / Unknown 03/07/2025 8:29 AM EST 03/07/2025 11:03 AM EST Betsy Lew MD LAB BLOOD ORDERABLES Final Result [facility] [address] [place] [address] [phone] * (ABNORMAL) CBC auto differential (03/07/2025 8:29 AM EST) Only the most recent of2 resultswithin the time period is included. White Blood Count 14.8(H) 4.8 - 10.8 X10*3/uL [facility] Red Blood Count 4.04(L) 4.20 - 5.50 X10*6/uL [facility] Hemoglobin 8.0(L) 12.0 - 16.0 g/dl [facility] Hematocrit 28.4(L) 37.0 - 47.0 % [facility] Mean Corpuscular Volume 70.3(L) 80.0 - 98.0 fL [facility] Mean Corpuscular Hemoglobin 19.8(L) 27.0 - 33.0 pg [facility] Mean Corpuscular HGB Conc 28.2(L) 31.0 - 35.0 g/dl [facility] Red Cell Distribution Width 21.2(H) 11.0 - 16.0 % [facility] Platelet Count 468(H) 160 - 400 X10*3/uL [facility] Mean Platelet Volume 10.0 9.4 - 12.3 fL [facility] Neutrophils Percent Auto 66.9 45 - 73 % [facility] Imm Gran Pct Auto 0.6(H) 0.0 - 0.4 % [facility] Lymphocytes Percent Auto 24.9 20 - 40 % [facility] Monocytes Percent Auto 4.9 2 - 11 % [facility] Eosinophils Percent Auto 2.4 0 - 4 % [facility] Basophils Percent Auto 0.3 0 - 2 % [facility] NRBC Pct Auto 0.0 0.0 - 0.2 /100WBC [facility] Neutrophils Absolute Auto 9.9(H) 2.0 - 8.3 x10*3/uL [facility] Imm Gran Abs Auto 0.09(H) 0.00 - 0.03 X10*3/uL [facility] Lymphocytes Absolute Auto 3.7 1.2 - 4.9 X10*3/uL [facility] Monocytes Absolute Auto 0.7 0.1 - 1.2 X10*3/uL [facility] Eosinophils Absolute Auto 0.4 0.0 - 0.4 X10*3/uL [facility] Basophils Absolute Auto 0.1 0.0 - 0.2 X10*3/uL [facility] NRBC Abs Auto 0.000 0.0 - 0.012 X10*3/uL [facility] Blood Venous blood specimen / Unknown 03/07/2025 8:29 AM EST 03/07/2025 11:03 AM EST us Betsy Lew MD LAB BLOOD ORDERABLES Final Result Performing Organization Address [facility] de Phone Number [facility] [address] [place] [phone] * (ABNORMAL) Iron And Total Iron Binding Capacity (03/07/2025 8:29 AM EST) [facility] Iron 17(L) 30 - 160 mcg/dL [facility] Total Iron Binding Capacity 326 228 - 428 mcg/dL [facility] Percent Iron Saturation 5(L) 15 - 50 % [facility] Unsaturated Iron Binding 309 ug/dL [facility] Blood Venous blood specimen / Unknown 03/07/2025 8:29 AM EST 03/07/2025 11:03 AM EST us Betsy Lew MD LAB BLOOD ORDERABLES Final Result Performing Organization Address [facility] de Phone Number [facility] [address] [place] [phone] * hCG, Total, Quantitative (03/07/2025 8:29 AM EST) HCG Quantitative <2 mIU/mL [facility] Comment:Weeks post LMP Appro ximate hCG(Last Menstrual Period) Range (mIU/ml)3 - 4 weeks 9 - 1304 - 5 weeks 75 - 2,6005 - 6 weeks 850 - 20,8006 - 7 weeks 4000 - 100,2007 - 12 weeks 11,500 - 289,82387 - 16 weeks 18,300 - 137,25454 - 29 weeks (2nd trimester) 1,400 - 53,89953 - 41 weeks (3rd trimester) 940 - 60,000The Dyson B- hCG assay is used for the early detection ofpregnancy; it cannot be used to diagnose any conditionunrelated to . If a B-hCG level is not supportedby the clinical evidence, results should be confirmed by analternative method (qualitative urine hCG, for example). Blood Venous blood specimen / Unknown 03/07/2025 8:29 AM EST 03/07/2025 11:03 AM EST us Betsy Lew MD LAB BLOOD ORDERABLES Final Result [facility] [address] [place] [phone] * (ABNORMAL) Ferritin (03/07/2025 8:29 AM EST) Ferritin 9(L) 10 - 122 ng/mL [facility] Blood Venous blood specimen / Unknown 03/07/2025 8:29 AM EST 03/07/2025 11:03 AM EST us Betsy Lew MD LAB BLOOD ORDERABLES Final Result [facility] [address] [place] [phone] * US Pelvis Transvaginal (02/23/2025 3:33 PM EST) Anatomical Region Laterality Modality Pelvis Ultrasound 02/23/2025 3:33 PM EST Narrative 02/23/2025 4:10 PM EST [address] [address] Ultrasound Report Signed Patient: Gela Lackey MR#: [id number] : 1985 Acct:[id number] Age/Sex: 39 / F ADM Date: 02/23/25 Loc: HO.US Attending Dr: Betsy Lew MD Ordering Physician: Betsy Chan MD Date of Service: 02/23/25 Procedure(s): US pelvic and transvaginal Accession Number(s): [id number] cc: Betsy Chan MD Reason for Exam: [...] contrast enhanced MRI pelvis. Text message via Rouxbe connect to the requesting physician Dr. Betsy Lew at 4:04 PM on February 23, 2025.. Electronically signed by: Ruperto Waldrop MD 02/23/2025 04:07 PM [facility] Dictated By: Ruperto Joy MD Signed By: <Electronically signed by Ruperto Rowell MD in OV> 02/23/25 1607 DD/ 1533 TD/TT: 02/23/25 1549 Powder Mixer: Procedure Note Donotuseinterpreter, Image - 02/23/[address] [address] Ultrasound Report Signed Patient: Gela LackeyMR#: [id number] : 1985Acct:[id number] Age/Sex: 39 / FADM Date: 02/23/25 Loc: HO.US Attending Dr: Betsy Lew MD Ordering Physician: Betsy Chan MD Date of Service: 02/23/25 Procedure(s): US pelvic and transvaginal Accession Number(s): [id number] cc: Betsy Chan MD Reason for Exam: [...] contrast enhanced MRI pelvis. Text message via Rouxbe connect to the requesting physician Dr. Betsy Lew at 4:04 PM on February 23, 2025.. Electronically signed by: Ruperto Waldrop MD 02/23/2025 04:07 PM [facility] Dictated By: Ruperto Joy MD Signed By: <Electronically signed by Ruperto Rowell MDin OV> 02/23/25 1607 DD/ 1533 TD/TT: 02/23/25 1549 Powder Mixer: Betsy eLw MD IM US PROCEDURES Fin al Result * (ABNORMAL) Vitamin D, 25-Hydroxy, Total, Immunoassay (01/10/2025 9:12 AM EST) Vitamin D 25-OH Total 13.5(L) >30 ng/mL [facility] Comment: Health Based Reference Values*< 20 ng/mL Gnnigsaln84-31 ng/mL Insufficient> 30 ng/mL Sufficient*Lidia POON. N [...] Lew MD LAB BLOOD ORDERABLES Final Result [facility] [address] [place] [phone] * TSH with Reflex to Free T4 (01/10/2025 9:12 AM EST) TSH reflex Free T4 3.31 0.32 - 4.0 uIU/mL [facility] Blood Venous blood specimen / Unknown 01/10/2025 9:12 AM EST 01/10/2025 11:27 AM EST Betsy Lew MD LAB BLOOD ORDERABLES Final Result Performing Organization Address [facility] Co de Phone Number [facility] [address] [place] [phone] * Hepatitis C Antibody with Reflex to HCV, RNA, Quantitative, Real-Time PCR (01/10/2025 9:12 AM EST) Pathologist [facility] Hepatitis C Antibody Nonreactive Nonreactive [facility] Comment:Antibodies to HCV no t detected; does not exclude early acuteHCV infection. Blood Venous blood specimen / Unknown 01/10/2025 9:12 AM EST 01/10/2025 11:45 AM EST Betsy Lew MD LAB BLOOD ORDERABLES Final Result Performing Organization Address [facility] de Phone Number [facility] [address] [place] [phone] * HIV-1/2 Antigen and Antibodies, Fourth Generation, with Reflexes (01/10/2025 9:12 AM EST) Pathologist [facility] HIV AB/AG Nonreactive Nonreactive [facility] Comment:HIV-1 p24 Ag and/or HIV-1/HIV-2 Ab not detected.A test result that is nonreactive does not exclude thepossibility of exposure to or infection with HIV-1 and/orHIV-2. Nonreactive results in this assay for individualswith prior exposure to HIV-1 and/or HIV-2 may be due toantigen and antibody levels that are below the limit ofdetection of this assay.The [employer] HIV Ag/Ab Combo assay result andsupplemental assay results should be interpreted inconjunction with the patient's clinical presentation,history and other laboratory results. If the results areinconsistent with clinical evidence, additional testing issuggested to confirm the result. Blood Venous blood specimen / Unknown 01/10/2025 9:12 AM EST 01/10/2025 11:45 AM EST Betsy Lew MD LAB BLOOD ORDERABLES Final Result Performing Organization Address [facility] Co de Phone Number [facility] [address] [place] [phone] * Hemoglobin A1c (01/10/2025 9:12 AM EST) Hemoglobin A1c 6.0 <6.0 % [facility] Comment:Hemoglobin A1C Refer ence Range Adults: 4.8 - 6.0 % Non diabetic: < 6.0 % Goal: < 7.0 %Additional Action Suggested: > 8.0 %Note: Hemoglobin A1c results are invalid for patients with abnormal amounts of HbF. Blood transfusions may impact the HbA1c concentration in the patient sample. Estimated Average Glucose 126 mg/dL [facility] Comment:eAG = Estimated ave rage glucose which is %A1C expressed asaverage glucose, using the formula of the F5N-VmkqdmfSmtezhh Glucose study (ADAG), Diabetes Care, Vol.31,#8,Oct. 2007 Blood Venous blood specimen / Unknown 01/10/2025 9:12 AM EST 01/10/2025 11:45 AM EST Betsy Lew MD LAB BLOOD ORDERABLES Final Result Performing Organization Address [facility] Co de Phone Number [facility] [address] [place] [phone] * (ABNORMAL) Lipid Panel, Standard (01/10/2025 9:12 AM EST) Triglycerides 111 <150 mg/dL [facility] Comment:Desirable Triglyceri de: less than 150 mg/dLBorderline High Triglyceride 150-199 mg/dLHigh Triglyceride: 200-499 mg/dLVery High Triglyceride: greater than or equal to 5OO mg/dL Cholesterol 192 <200 mg/dL [facility] Comment:Desirable Cholestero l: less than 200 mg/dLBorderline High Cholesterol: 200-239 mg/dLHigh Cholesterol: greater than 239 mg/dL LDL Cholesterol Calculated 133(H) <100 mg/dL [facility] Comment:Desirable LDL: less than 100 mg/dLNear Optimal/Above Optimal LDL: 110- 129 mg/dLBorderline High LDL: 130-159 mg/dLHigh LDL: 160-189 mg/dLVery High LDL: greater than or equal to 190 mg/dL HDL Cholesterol 37(L) >40 mg/dL [facility] Comment:Desirable HDL: great er than 40 mg/dL Note: This HDL assay may give artificially low results in patients with liver disease. Blood Venous blood specimen / Unknown 01/10/2025 9:12 AM EST 01/10/2025 11:27 AM EST Betsy Lew MD LAB BLOOD ORDERABLES Final Result [facility] [address] [place], [place] [phone] * (ABNORMAL) Comprehensive Metabolic Panel (01/10/2025 9:12 AM EST) Sodium 139 135 - 145 mmol/L [facility] Potassium 4.2 3.3 - 5.1 mmol/L [facility] Comment:Slight Hemolysis.Int erpret result with caution. Chloride 109(H) 96 - 108 mmol/L [facility] Carbon Dioxide 23 22 - 29 mmol/L [facility] Anion Gap 11(L) 12 - 20 [facility] Urea Nitrogen (BUN) 13 9 - 16 mg/dL [facility] Creatinine, Serum 0.75 0.5 - 1.4 mg/dL [facility] Estimated Glomerular Filt Rate >60 [facility] Comment:Chronic Kidney Disea se: Estimated GFR < 60 mL/min/1.02w5Frkqyd Kidney Disease: Estimated GFR < 15 mL/min/1.73m2 Glucose 90 60 - 115 mg/dL [facility] Calcium 9.0 8.4 - 10.2 mg/dL [facility] Bilirubin, Total 0.5 0.0 - 1.0 mg/dL [facility] Aspartate Amino Transferase 33(H) 5 - 31 U/L [facility] Comment:Slight Hemolysis.Int erpret result with caution. Alanine Aminotransferase 27 0 - 31 U/L [facility] Total Protein 7.6 6.5 - 8.0 g/dL [facility] Albumin Level 4.2 3.5 - 5.0 g/dL [facility] Alkaline Phosphatase 100 39 - 117 U/L [facility] Blood Venous blood specimen / Unknown 01/10/2025 9:12 AM EST 01/10/2025 11:27 AM EST Betsy Lew MD LAB BLOOD ORDERABLES Final Result [facility] [address] [place] [phone] * HPV mRNA E6/E7 w/Reflex to HPV Genotypes 16, 18/45 (12/27/2022 11:30 AM EDT) HPV nRNA E6/E7 Not Detected Not Detected [facility] Comment:Methodology: Transcr iption-Mediated AmplificationThis assay detects E6/E7 viral messenger RNA (mRNA) from 14high-risk HPV types (16,18,31,33,35,39,45,51,52,56,58,59,66,68).Cervical sources are required for HPV testing.If a vaginal source from a patient who has had atotal hysterectomy with removal of cervix wassubmitted, please contact the testing laboratoryfor alternative testing options.For additional information, please refer tohttp://education.[employer]/faq/KHU723e5(This link if provided for information/educational purposes only.)THIS TEST WAS PERFORMED AT:[employer] [place] [phone] COX MD HPV mRNA E6/E7 TNP [facility] HPV 16 RNA TNP [facility] HPV 18/45 RNA TNP [facility] 12/27/2022 11:3 0 AM EDT 12/30/2022 9:15 AM EDT us Lenora Sorenson DO LAB CYTOLOGY ORDERABLES Breanna sauceda Result [facility] [address] [place] [phone] * Pap Smear (12/27/2022 11:30 AM EDT) 12/27/2022 11:3 0 AM EDT 12/30/2022 9:15 AM EDT Narrative [facility] - 01/02/2023 9:40 AM EDT ----- ------- Name: Gela Figueroa Age/Sex: 37/F : 1985 Unit#: [id number] Attend Dr: Lenora Sorenson DO Re12/27/22 Status: DEP ELKIN Location: HO.HHCLNP Disch: ----- ------- SPEC : [id number] RECD: 12/30/22 STATUS: GENIE FERGUSON NUM: [id number] BIENVENIDO: 12/27/22-[address] [facility] [address]: Lenora Sorenson DO ENTERED: 12/30/22 SP TYPE: Pap Smr OTHR DR: ORDERED: Pap Smear Interpretation Satisfactory for evaluation. Mild inflammation. Negative for intraepithelial lesion or malignancy. HPV mRNA E6/E7: NOT DETECTED This assay detects E6/E7 viral messenger RNA (mRNA) from 14 high-risk HPV types (16, 18, 31, 33, 35, 39, 45, 51, 52, 56, 58, 59, 66, 68) HPV testing performed by [facility] [facility], [place], [place]. See reference laboratory pion of the EMR for entire report. Clinical Information LMP: Unknown date Previous PAP test: Unknown date, WNL Material Received ThinPrep-Cervical ----- ------- Signed (signature on file) BREE Granado (ASCP) 01/02/23 0940 ----- ------- END OF REPORT Lenora Sorenson DO LAB CYTOLOGY ORDERABLES Breanna sauceda Result [facility] [address] [place] [address] [phone] from Last 3 Months or Most Recently Relevant to Health Maintenance Insurance C3 Care Teams Sk[employer] Relationship Specialty Start Date End Date Betsy Chan MD [address] [place] [phone] PCP - General Internal Medicine 11/11/24
--- OUTSIDE RECORDS SUMMARY | 2025-03-08 18:44 | XMS_ITS | Encounter Summary ---
Author Organization [facility] [facility] [employer] Address [address] [place] [address] Care Team Providers Care Automotive Manufacturer Name Role Phone Bety Browning Primary Care Provider [phone] Betsy Chan MD Primary Care Provide r Reason for Visit * Reason Comments Med Refill Encounter Details Date Type Department Care Team (Late st Contact Info) Description 10/13/2024 Refill [facility] [address], [place] [phone] Bety Browning FNP [address], [place] [phone] Social History Tobacco Use Types Packs/Day Years [...] Description 05/31/2025 9:15 AM EDT Office Visit [facility] [address] [place] [phone] Betsy Chan MD [address] [place] [phone] documented as of this encounter Visit Diagnoses Not on filedocumented in this encounter Additional Health Concerns Assessment Noted Time PHQ-9 Depression Total Score: 0 08/25/19 24 4:37 PM EDT documented as of this encounter Care Teams Automotive Manufacturer Relationship Specialty Start Date End Date Bety Browning FNP [address] [place] [address] PCP - General Family Medicine 11/11/21 10/17/24 Betsy Chan MD [address] [place] [phone] PCP - General Internal Medicine 11/11/24 documented as of this encounter
== END 2025-03-08 15:04 ==
LOC: HO.MRI 15:03
PROVIDERS: PCP Internal Medicine; Visit Provider Internal Medicine
DX: N83.8 Other noninflammatory disorders of ovary, fallopian tube and broad ligament (principal)
CPT/HCPCS: 72197; A9585

== ENCOUNTER → 2025-03-08 15:03 | Outpatient (BNV) | payer MEDICAID, SELFPAY | PROVIDERS: PCP Internal Medicine; Visit Provider Radiology Diagnostic Radiology | DX: N83.209 Unspecified ovarian cyst, unspecified side (principal); N83.8 Other noninflammatory disorders of ovary, fallopian tube and broad ligament | CPT/HCPCS: 72197 ==